=== PATIENT | male | born 1950 | race Caucasian/White ===

== ENCOUNTER → 2020-04-28 10:16 | Outpatient (BNVA) | payer MEDICARE, BC, SELFPAY | PROVIDERS: PCP Internal Medicine; Visit Provider Surgery | DX: K40.90 Unilateral inguinal hernia, without obstruction or gangrene, not specified as recurrent (principal); R10.31 Right lower quadrant pain | CPT/HCPCS: 99202 ==

== ENCOUNTER 2020-05-06 07:57 | Outpatient (REF) | payer MEDICARE, BC, SELFPAY ==
--- NOTE | 2020-05-06 07:59 | CT_ITS ---
EXAMINATION: CT ABDOMEN AND PELVIS WITHOUT CONTRAST CLINICAL INFORMATION: Unilateral inguinal hernia. COMPARISON: None TECHNIQUE: Multidetector volumetric imaging was performed from the superior aspect of the liver through the pubic symphysis. Sagittal and coronal reformatted images were obtained on the technologist's workstation. This CT examination was performed using dose optimization techniques as appropriate, variously including the following: *Automated exposure control *Adjustment of mA and/or kV according to patient size (this includes techniques or standardized protocols for targeted exams where dose is matched to indication/reason for exam; i.e. extremities or head) *Use of iterative reconstruction technique DLP: 360 mGy-cm FINDINGS: LUNG BASES: There is plate-like atelectasis left lung base. LIVER, GALLBLADDER, AND BILIARY TREE: The liver is mildly enlarged, normal shape, and attenuation. No focal hepatic lesion or biliary ductal dilatation is present. The gallbladder is unremarkable with no evidence of radiopaque gallstones, gallbladder wall thickening, or obvious pericholecystic inflammatory changes. PANCREAS: Unremarkable. SPLEEN: Unremarkable. ADRENAL GLANDS: Unremarkable. KIDNEYS AND URETERS: The right kidney is absent. The left kidney is slightly hypertrophied without any radiopaque calculi or hydronephrosis. There is mild perinephric stranding. BLADDER: Unremarkable. GASTROINTESTINAL TRACT: There is scattered stool, diverticuli and gas seen throughout the colon without any significant distention. The small-bowel loops are normal caliber. The appendix is normal. ABDOMINAL WALL: No significant hernia is appreciated. LYMPH NODES: Normal. VASCULAR: Unremarkable. PELVIC VISCERA: There is mild prostate enlargement with scattered central gland calcification. The periprostatic fat planes are preserved. OSSEOUS STRUCTURES: There is moderate right L5-S1 and bilateral L4-L5 facet joint arthropathy and hypertrophy. CT/CT abdomen pelvis wo con IMPRESSION: Scattered colonic diverticulosis without diverticulitis. Mild constipation. [id number] prostate enlargement. The periprostatic fat planes are preserved.
== END 2020-05-06 07:58 | disposition home or self-care (01) ==
LOC: HO.CT 07:57
PROVIDERS: PCP Internal Medicine; Visit Provider Surgery
DX: K40.90 Unilateral inguinal hernia, without obstruction or gangrene, not specified as recurrent (principal)
CPT/HCPCS: 74176

== ENCOUNTER → 2020-05-11 09:21 | Outpatient (BNVA) | payer MEDICARE, BC, SELFPAY | PROVIDERS: PCP Internal Medicine; Visit Provider Surgery | DX: K40.90 Unilateral inguinal hernia, without obstruction or gangrene, not specified as recurrent (principal) | CPT/HCPCS: 99212 ==

== ENCOUNTER 2020-06-07 09:45 | Day surgery (SDC) | payer MEDICARE, BC, SELFPAY ==
[2020-06-01 11:24] VITALS: BMI 23.1
--- NOTE | 2020-06-06 10:30 | HO.ANESPROP2 ---
Documented by User: Maggy Wray 06/06/20 10:31 HPI - Anesthesia Eval Consult details Narrative: 69yo M for Hernia Repair Inguinal with mesh PMFSH Active Problems Active Problems: All Active Problems (Updated 06/01/20 @ 11:23 by Karely Angelo) Inguinal pain (Acute) Trochanteric bursitis (Acute) Abdominal pain (Acute) Left inguinal hernia (Acute) Right groin pain (Acute) BPH (benign prostatic hyperplasia) (Acute) GERD (gastroesophageal reflux disease) (Acute) Asthma (Acute) Hypercholesterolemia (Acute) Anxiety and depression (Acute) Past Medical History Medical History Anxiety and depression Asthma BPH (benign prostatic hyperplasia) Cataracts, bilateral Closed fibular fracture Degenerative disc disease Erectile dysfunction GERD (gastroesophageal reflux disease) Hypercholesterolemia Hyperkalemia Hypertension Kidney congenitally absent, right Left inguinal hernia On beta jose at home Right groin pain Tubular adenoma of colon Family History Family History Father Prostate cancer Mother Stroke Hypertension Brother Myocardial infarction Surgical History Surgical History H/O cataract removal with insertion of prosthetic lens History of arthroscopy of left knee History of bunionectomy History of right inguinal hernia repair History of shoulder surgery History of tonsillectomy Hx of circumcision Hx of colonoscopy Social History Social History Alcohol intake: former Smoking Status: Former smoker Advance Directives: No Advance Directives Information Provided: No Advance Directives on File: No Recently lost weight without trying: No Meds Allergies Allergy/AdvReac Type Severity Reaction Status Date / Time citalopram [Celexa] Allergy Unknown unknown Verified 04/18/20 14:22 finasteride Allergy Muscle Verified 04/27/20 08:28 cramps Home Medications Medication Instructions Recorded Confirmed Type aspirin 81 mg tablet,delayed 81 mg PO DAILY 03/21/20 06/01/20 History release atorvastatin 10 mg tablet 10 mg PO DAILY 03/21/20 06/01/20 History cetirizine 10 mg capsule mg PO DAILY cap 03/21/20 05/11/20 History glucosamine sulfate 500 mg tablet 500 mg PO DAILY 03/21/20 06/01/20 History lisinopril 40 mg tablet 40 mg PO DAILY 03/21/20 06/01/20 History montelukast 10 mg tablet 10 mg PO DAILY 03/21/20 06/01/20 History omeprazole 20 mg capsule,delayed mg PO 03/21/20 05/11/20 History release tamsulosin 0.4 mg capsule 0.4 mg PO DAILY 03/21/20 06/01/20 History vilazodone 40 mg tablet 40 mg PO DAILY 03/21/20 06/01/20 History calcium carbonate 1,000 tab PO 04/28/20 05/11/20 History mg-magnesium hydroxide 200 mg chewable tablet vilazodone 20 mg tablet 20 mg PO DAILY 05/11/20 05/11/20 History Exam Exam Date and Time: June 06, 2020 1030 Height,Weight and Vital Signs: Height 5 ft 10 in Weight 72.972 kg Assessment and Plan Assessment Anesthesia Assessment: Chart Reviewed Documented by User: Candida Horn 06/07/20 10:48 [facility] Past Medical History Medical History Anxiety and depression Asthma BPH (benign prostatic hyperplasia) Cataracts, bilateral Closed fibular fracture Degenerative disc disease Erectile dysfunction GERD (gastroesophageal reflux disease) Hypercholesterolemia Hyperkalemia Hypertension Kidney congenitally absent, right Left inguinal hernia On beta jose at home Right groin pain Tubular adenoma of colon Family History Family History Father Prostate cancer Mother Stroke Hypertension Brother Myocardial infarction Surgical History Surgical History H/O cataract removal with insertion of prosthetic lens History of arthroscopy of left knee History of bunionectomy History of right inguinal hernia repair History of shoulder surgery History of tonsillectomy Hx of circumcision Hx of colonoscopy Social History Social History Alcohol intake: former Smoking Status: Former smoker Advance Directives: No Advance Directives Information Provided: No Advance Directives on File: No Recently lost weight without trying: No Meds Allergies Allergy/AdvReac Type Severity Reaction Status Date / Time citalopram [Celexa] Allergy Unknown unknown Verified 04/18/20 14:22 finasteride Allergy Muscle Verified 04/27/20 08:28 cramps Home Medications Medication Instructions Recorded Confirmed Type aspirin 81 mg tablet,delayed 81 mg PO DAILY 03/21/20 06/01/20 History release atorvastatin 10 mg tablet 10 mg PO DAILY 03/21/20 06/01/20 History cetirizine 10 mg capsule mg PO DAILY cap 03/21/20 05/11/20 History glucosamine sulfate 500 mg tablet 500 mg PO DAILY 03/21/20 06/01/20 History lisinopril 40 mg tablet 40 mg PO DAILY 03/21/20 06/01/20 History montelukast 10 mg tablet 10 mg PO DAILY 03/21/20 06/01/20 History omeprazole 20 mg capsule,delayed mg PO 03/21/20 05/11/20 History release tamsulosin 0.4 mg capsule 0.4 mg PO DAILY 03/21/20 06/01/20 History vilazodone 40 mg tablet 40 mg PO DAILY 03/21/20 06/01/20 History calcium carbonate 1,000 tab PO 04/28/20 05/11/20 History mg-magnesium hydroxide 200 mg chewable tablet vilazodone 20 mg tablet 20 mg PO DAILY 05/11/20 05/11/20 History Exam Airway Mallampati Class: II TM Dist: >3cm Neck ROM: Full Assessment and Plan Assessment Anesthesia Assessment: Anesthesia Plan Discussed and Chart Reviewed Final Anesthetic Review NPO: Yes ASA Class: II Final Preanesthetic Review: No Changes in Pt Med Stat, Meds/Allgs Chart Reviewed, Consent Obtained/Reviewed and Anes Risks/Benef Reviewed Patient Risk: Low Procedure Risk: Low Assessment/Block/Sedation in SS: Assess/Block/Sedation-SS Anesthetic Plan Anesthetic Plan: GA Disposition: Standard PACU
[2020-06-07] VITALS (7 sets, daily range): BP systolic 126–142; BP diastolic 53–72; PULSE 56–65; RESP 12–18; TEMP 36.2–36.8; O2SAT 97–99
[2020-06-07] MEDS: Lactated Ringers 1,000 ML 100 ML IVCONT (10:20)
--- NOTE | 2020-06-07 10:37 | MHC.SHP ---
Pre-Procedural Eval Section B Chief Complaint: Left Inguinal hernia Allergies: Allergies Allergy/AdvReac Type Severity Reaction Status Date / Time citalopram [Celexa] Allergy Unknown unknown Verified 04/18/20 14:22 finasteride Allergy Muscle Verified 04/27/20 08:28 cramps Plan I have reviewed the history and physical and performed a pertinent physical examination on my patient. No changes have occurred unless specified.
--- NOTE | 2020-06-07 11:59 | P.OP_ITS ---
Operative Note Operative Note Date of Service: 06/07/20 Narrative: PREOP DIAGNOSIS: LEFT INGUINAL HERNIA POSTOP DIAGNOSIS: LEFT INGUINAL HERNIA, DIRECT PROCEDURE DONE: REPAIR OF LEFT INGUINAL HERNIA WITH MESH AND PLUG SURGEON: BENITA TIRADO MD [facility] FAMILY MEDICINE PHYSICIAN ASSISTANT: ANDREINA ALLISON The patient is a 69-year-old male with a reducible mass on the left groin consistent with a left inguinal hernia. He wanted to proceed with repair. He understood the technique of repair with mesh. He was aware of the risks, benefits, and alternatives. He was brought to the operating room and placed supine on table under general anesthesia via laryngeal mask airway. The left groin was prepped and draped in the usual sterile fashion. A surgical time-out was done. The patient received cefazolin 2 g IV preoperatively. I infiltrated the planned line of incision using lidocaine 1%. I made a short incision on the skin along an imaginary line from the anterior superior iliac spine to the pubic ramus using a blade 15. This was carried down through the full-thickness of the skin and subcutaneous fat with electrocautery. We then proceeded to define the external oblique aponeurosis. We were able to identify the external ring and bluntly dissected this to carefully define this. I made an incision on the fibers of the aponeurosis using the blade number 15 and extended this inferomedially to connect with the external ring. The inguinal the canal was therefore entered. Hemostats were placed on the edges of the divided external oblique aponeurosis.. I bluntly dissected the plane under the aponeurosis to create a pocket for the mesh. I bluntly dissected the spermatic cord and its contents using an index finger until I was able to pass a Ese drain around this. This De Witt drain was used for retraction. I identified the vas deferens and accompanying vessels. There was note of lipomatous tissue surrounding cord. I examined the cord to identify the hernia sac. The hernia sac was actually on the floor of the canal and this was consistent with a direct hernia. I bluntly dissected the sac until I was able to completely reduce this through the defect. I reinforced this defect using a medium-sized plug. The plug was secured with Prolene 2-0 sutures to the shelving edge of the inguinal ligament laterally, and the internal oblique superiorly as well as medially using the inner leaves of the plug. I reinforced the floor of the canal with a keyhole mesh. The tails of the mesh were passed around the cord at the level of the internal ring and were secured together with Prolene 2 sutures. I secured the mesh with Prolene 2 sutures to the shelving edge of the inguinal canal laterally, and the internal oblique superiorly as well as medially. This was also secured to the pubic ramus in the inferomedial tip. The area was copiously irrigated. Once hemostasis was ensured I proceeded to then close the external oblique aponeurosis running Dexon 2-0 stitch to re- create the external ring. The subcutaneous layer was reapposed with Dexon 3-0 sutures. Skin closure achieved with Dexon 4-0 subcuticular running sutures. Steri-Strips and dressings applied. The incision was infiltrated with Marcaine 0.5% for postop analgesia and the procedure was completed. The patient tolerated the procedure well. There were no complications noted. Initial and final counts of sponges and instruments were correct. Estimated blood loss was 5 cc. The patient was extubated without difficulty and transferred to the recovery room with stable vital signs.
--- NOTE | 2020-06-07 12:05 | PM.OP ---
Brief Operative Note Date of Service: 06/07/20 Pre-op diagnosis: Left inguinal hernia Post-op diagnosis: other (Left inguinal hernia, direct) Procedure: Repair of left inguinal hernia with mesh and plug Implants: Mesh Surgeon: Vineet Grover MD Anesthesia: GLMA Gyroscopic Instrument Tester: Juana Bardales Estimated blood loss (mL): 5 Pathology: none sent Condition: stable Disposition: PACU
== END 2020-06-07 13:25 | disposition home or self-care (01) ==
PROVIDERS: PCP Internal Medicine; Visit Provider Surgery
PROC: (CPT 49505; principal; 2020-06-07 11:50)
DX: K40.90 Unilateral inguinal hernia, without obstruction or gangrene, not specified as recurrent (principal); I10 Essential (primary) hypertension; Z79.899 Other long term (current) drug therapy
CPT/HCPCS: 49505; C1781; J0690; J1100; J2405; J3010

== ENCOUNTER → 2020-06-20 13:08 | Outpatient (BNVA) | payer MEDICARE, BC, SELFPAY | PROVIDERS: PCP Internal Medicine; Visit Provider Surgery | DX: K40.90 Unilateral inguinal hernia, without obstruction or gangrene, not specified as recurrent (principal) | CPT/HCPCS: 99212 ==

== ENCOUNTER → 2020-12-22 09:13 | Outpatient (BNVA) | payer MEDICARE, BC, SELFPAY | PROVIDERS: PCP Internal Medicine; Visit Provider Urology | DX: N41.1 Chronic prostatitis (principal); N40.1 Benign prostatic hyperplasia with lower urinary tract symptoms; N13.8 Other obstructive and reflux uropathy; R35.0 Frequency of micturition; N52.9 Male erectile dysfunction, unspecified; E78.00 Pure hypercholesterolemia, unspecified; I10 Essential (primary) hypertension; Z87.891 Personal history of nicotine dependence; Z88.8 Allergy status to other drugs, medicaments and biological substances | CPT/HCPCS: 99202 ==

== ENCOUNTER 2021-01-27 08:23 | Outpatient (REF) | payer MEDICARE, BC, SELFPAY ==
[2021-01-27 08:41] LABS: MANUAL DIFF FLAG NO
[2021-01-27 09:02] LABS: Basophils Percent Auto 0.2 % (0-2); Eosinophils Absolute Auto 0.1 X10*3/uL (0.0-0.4); Eosinophils Percent Auto 0.8 % (0-4); Hematocrit 45.5 % (42-52); Hemoglobin 16.1 g/dl (14.0-18.0); Imm Gran Abs Auto 0.03 X10*3/uL (0.00-0.03); Imm Gran Pct Auto 0.3 % (0.0-0.4); Lymphocytes Absolute Auto 0.9 X10*3/uL (1.2-4.9); Lymphocytes Percent Auto 9.6 % (20-40); Mean Corpuscular HGB Conc 35.4 g/dl (31.0-36.0); Mean Corpuscular Hemoglobin 31.9 pg (27.0-33.0); Mean Corpuscular Volume 90.3 fL (80-98); Mean Platelet Volume 10.9 fL (9.4-12.4); Monocytes Absolute Auto 0.5 X10*3/uL (0.1-1.2); Monocytes Percent Auto 5.9 % (2-11); Neutrophils Absolute Auto 7.4 X10*3/uL (2.0-8.3); Neutrophils Percent Auto 83.2 % (45-73); Platelet Count 230 X10*3/uL (160-400); Red Blood Count 5.04 X10*6/uL (4.60-5.80); Red Cell Distribution Width 11.5 % (11.0-16.0); White Blood Count 8.9 X10*3/uL (4.8-10.8)
[2021-01-27 09:31] LABS: Alanine Aminotransferase 19 U/L (0-40); Albumin Level 4.3 g/dL (3.5-5.0); Alkaline Phosphatase 102 U/L (39-117); Anion Gap 10 (12-20); Aspartate Amino Transferase 23 U/L (5-37); Bilirubin Total 0.7 mg/dL (0.0-1.0); Blood Urea Nitrogen 20 mg/dL (9-16); Calcium 9.4 mg/dL (8.4-10.2); Carbon Dioxide 28 mmol/L (22-29); Chloride 106 mmol/L (96-108); Cholesterol 174 mg/dL; Estimated Glomerular Filt Rate > 60; Glucose Random 127 mg/dL (60-115); HDL Cholesterol 56 mg/dL; LDL Cholesterol Calculated 105 mg/dl; Potassium 4.3 mmol/L (3.3-5.1); Sodium 140 mmol/L (135-145); Total Protein 6.8 g/dL (6.5-8.0); Triglycerides 69 mg/dL
[2021-01-27 09:53] LABS: Free T4 (Free Thyroxine) 0.96 ng/dL (0.71-1.85); Prostate Specific Antigen Scr 0.89 ng/mL (<0.05-4.0); Thyroid Stimulating Hormone 0.73 uIU/mL (0.32-4.0)
[2021-01-27 09:55] LABS: Folate 17.3 ng/mL (> or = 4.0); Vitamin B12 490 pg/mL (200-900)
== END 2021-01-27 08:24 | disposition home or self-care (01) ==
LOC: HO.LAB 08:23
PROVIDERS: PCP Internal Medicine; Visit Provider Internal Medicine
DX: E78.00 Pure hypercholesterolemia, unspecified (principal); N40.1 Benign prostatic hyperplasia with lower urinary tract symptoms; R35.0 Frequency of micturition; Z12.5 Encounter for screening for malignant neoplasm of prostate
CPT/HCPCS: 36415; 80053; 80061; 82607; 82746; 84153; 84439; 84443; 85025

== ENCOUNTER 2021-12-07 09:43 | Outpatient (REF) | payer MEDICARE, BC, SELFPAY ==
[2021-12-07 09:58] LABS: MANUAL DIFF FLAG NO
[2021-12-07 10:37] LABS: Basophils Absolute Auto 0.1 X10*3/uL (0.0-0.2); Eosinophils Absolute Auto 0.2 X10*3/uL (0.0-0.4); Eosinophils Percent Auto 3.5 % (0-4); Hematocrit 45.3 % (42.0-52.0); Hemoglobin 16.1 g/dl (14.0-18.0); Imm Gran Abs Auto 0.01 X10*3/uL (0.00-0.03); Imm Gran Pct Auto 0.2 % (0.0-0.4); Lymphocytes Absolute Auto 1.4 X10*3/uL (1.2-4.9); Lymphocytes Percent Auto 23.2 % (20-40); Mean Corpuscular HGB Conc 35.5 g/dl (31.0-36.0); Mean Corpuscular Hemoglobin 31.8 pg (27.0-33.0); Mean Corpuscular Volume 89.5 fL (80.0-98.0); Mean Platelet Volume 10.9 fL (9.4-12.4); Monocytes Absolute Auto 0.4 X10*3/uL (0.1-1.2); Monocytes Percent Auto 6.4 % (2-11); Neutrophils Absolute Auto 3.9 x10*3/uL (2.0-8.3); Neutrophils Percent Auto 65.7 % (45-73); Platelet Count 202 X10*3/uL (160-400); Red Blood Count 5.06 X10*6/uL (4.60-5.80); Red Cell Distribution Width 11.9 % (11.0-16.0); White Blood Count 5.9 X10*3/uL (4.8-10.8)
[2021-12-07 11:21] LABS: Alanine Aminotransferase 18 U/L (0-40); Albumin Level 4.2 g/dL (3.5-5.0); Alkaline Phosphatase 97 U/L (39-117); Anion Gap 13 (12-20); Aspartate Amino Transferase 21 U/L (5-37); Bilirubin Total 0.4 mg/dL (0.0-1.0); Blood Urea Nitrogen 16 mg/dL (9-16); Calcium 8.8 mg/dL (8.4-10.2); Carbon Dioxide 28 mmol/L (22-29); Chloride 106 mmol/L (96-108); Cholesterol 174 mg/dL; Estimated Glomerular Filt Rate > 60; Glucose Random 109 mg/dL (60-115); HDL Cholesterol 49 mg/dL; LDL Cholesterol Calculated 111 mg/dl; Potassium 4.9 mmol/L (3.3-5.1); Sodium 142 mmol/L (135-145); Total Protein 6.6 g/dL (6.5-8.0); Triglycerides 74 mg/dL
[2021-12-07 11:43] LABS: Free T4 (Free Thyroxine) 0.96 ng/dL (0.71-1.85); Prostate Specific Antigen Scr 0.47 ng/mL (<0.05-4.0); Thyroid Stimulating Hormone 0.87 uIU/mL (0.32-4.0)
[2021-12-07 13:51] LABS: Folate > 20.0 ng/mL (> or = 4.0); Vitamin B12 478 pg/mL (200-900)
== END 2021-12-07 09:44 | disposition home or self-care (01) ==
LOC: HO.LAB 09:43
PROVIDERS: PCP Internal Medicine; Visit Provider Internal Medicine
DX: Z12.5 Encounter for screening for malignant neoplasm of prostate (principal); N40.1 Benign prostatic hyperplasia with lower urinary tract symptoms; R35.0 Frequency of micturition; E78.00 Pure hypercholesterolemia, unspecified
CPT/HCPCS: 36415; 80053; 80061; 82607; 82746; 84153; 84439; 84443; 85025

== ENCOUNTER 2023-01-02 10:50 | Outpatient (AMB) | payer MEDICARE, BC, SELFPAY ==
[2023-01-02 10:55] VITALS: BP 114/68; PULSE 75; O2SAT 97; BMI 21.9
--- NOTE | 2023-01-02 10:55 | A.OFFPC_ITS ---
Vital Signs 01/02/23 10:55 Height 5 ft 11 in Weight 157 lb BMI 21.9 BP 114/68 Blood Pressure Location Lt brachial Position Sitting Pulse 75 Pulse Source Pulse Oximeter Pulse Oximetry (%) 97 Oxygen Delivery Method Room Air Intake Visit Reasons: 6m F/U HTN , asthma Allergies citalopram [Celexa] Allergy (Unknown, Verified 01/02/23 10:56) Difficulty Breathing finasteride Allergy (Verified 01/02/23 10:56) Muscle cramps fluticasone furoate [From Arnuity Ellipta] Adverse Reaction (Intermediate, Unverified 01/02/23 11:45) hoarsenss Medication List - Last Reconciled 01/02/23 by Kellen Perez MD albuterol sulfate 90 mcg/actuation 2 puffs PO QID PRN alprazolam 0.25 mg PO BID PRN 30 days amlodipine 5 mg PO DAILY aripiprazole 15 mg PO BEDTIME 30 days aspirin 81 mg PO DAILY atorvastatin 10 mg PO DAILY 90 days calcium carbonate-mag hydroxid 1,000-200 mg (Antacid (calcium carb-magnesium hyd)) tabs PO cetirizine (Zyrtec) mg PO DAILY dutasteride (Avodart) 0.5 mg PO DAILY glucosamine sulfate (Glucosamine) 500 mg PO DAILY ipratropium-albuterol 0.5 mg-3 mg(2.5 mg base)/3 mL 3 mL inhalation QID PRN lisinopril 40 mg PO DAILY metoprolol succinate ER 25 mg PO DAILY montelukast 10 mg PO DAILY omeprazole 20 mg PO BID 90 days tamsulosin 0.4 mg PO DAILY trazodone 50 mg PO BEDTIME PRN 30 days vilazodone (Viibryd) 40 mg PO DAILY 90 days Tobacco use date assessed: 06/28/22 Fall risk assessment: No Falls in past year Last assessed Fall Risk: 01/02/23 Dental Screening Dental Screen Date: 01/02/23 Did you have a dental visit in the last 12 months?: Yes Did you have a dental problem in the last 6 months where you did not have access to dental care?: No Was dental information given to patient?: Patient has dentist HPI 6m F/U HTN , asthma HPI Details 72-year-old male with hypertension, hypercholesterolemia, GERD, asthma BPH impaired glucose tolerance and generalized anxiety disorder last seen in August 2022 for an annual well visit. Lab work was requested. As for colonoscopy patient is up-to-date March 2021 and 5 years. Patient has not followed up with the Urology and wants to see a different 1. As for the asthma under control has not been using any inhalers. He does mention that the Incruse causes hoarseness. He does not need any rescue inhaler for now. As for the blood pressure patient brought a list with all blood pressures below 110 systolic blood pressure patient is on 3 blood pressure medication and discussed about taking out 1. As for the blood work reminded patient about the blood work needed. As for the anxiety declined any referral for counseling patient is doing good [facility] Medical History (Updated 09/11/22 @ 17:13 by Kellen Perez MD) Asthma BPH (benign prostatic hyperplasia) Cataracts, bilateral Closed fibular fracture Degenerative disc disease Erectile dysfunction GERD (gastroesophageal reflux disease) Hypercholesterolemia Hyperkalemia Hypertension Kidney congenitally absent, right Left inguinal hernia Tubular adenoma of colon Surgical History H/O cataract removal with insertion of prosthetic lens History of arthroscopy of left knee History of bunionectomy History of left inguinal hernia repair History of right inguinal hernia repair History of shoulder surgery History of tonsillectomy Hx of circumcision Hx of colonoscopy Family History (Updated 06/28/22 @ 14:28 by Parisa Bright CMA) Father Prostate cancer Mother Stroke Hypertension Brother Myocardial infarction Social History Housing: Condominium Alcohol intake: former Patient Tobacco Use Status: Former Tobacco user Tobacco use type: Cigarette Years Smoked: quit smoking 1984 e-Cigarette/Vaping Use: Never Used Second Hand Smoke Exposure: No service: Yes Current occupational status: retired Cognitive needs: No Hearing needs: No Vision needs: Yes Questionnaire PHQ-9 Over the last 2 weeks, how often have you been bothered by any of the following problems? 1. Little interest or pleasure in doing things: several days 2. Feeling down, depressed, or hopeless: several days 3. Trouble falling or staying asleep, or sleeping too much: not at all 4. Feeling tired or having little energy: not at all 5. Poor appetite or overeating: not at all 6. Feeling bad about yourself - or that you are a failure or have let yourself or your family down: several days 7. Trouble concentrating on things, such as reading the newspaper or watching television: not at all 8. Moving or speaking so slowly that other people could have noticed. Or the opposite - being so fidgety or restless that you have been moving around a lot more than usual: not at all 9. Thoughts that you would be better off or of hurting yourself in some way: not at all Total score: 3 Depression Screening Interpretation: Positive Source: Developed by Drs. Ranjith Damian, Lis Du, Benji Blanco and colleagues, with an educational francheska from [employer]. Thrive Questionnaire Date Thrive assessed: 06/28/22 AUDIT C Alcohol Use Questionnaire (AUDIT-C) 1. How often do you have a drink containing alcohol?: Never 2. How many drinks containing alcohol do you have on a typical day when you are drinking?: 1 or 2 3. How often do you have six or more drinks on one occasion?: Never Total Score: 0 NICOLE-7 AMB Questionnaire NICOLE-7 Date NICOLE - 7 assessed: 09/11/22 Source: Developed by Drs. Ranjith Damian, Lis Du, Benji Blanco and colleagues, with an educational francheska from [employer]. Physical exam (Primary Care) Vital Signs: Last Vital Signs Pulse 75 01/02/23 10:55 BP 114/68 01/02/23 10:55 Pulse Ox 97 01/02/23 10:55 Oxygen Delivery Method Room Air 01/02/23 10:55 BMI result Body Mass Index 21.9 Tobacco/Smoking Status: Tobacco use Status Tobacco use date assessed 06/28/22 01/02/23 10:56 Patient Tobacco Use Status Former Tobacco user 01/02/23 10:56 Tobacco use type Cigarette 01/02/23 10:56 e-Cigarette/Vaping Use Never Used 01/02/23 10:56 PHQ-9: PHQ-9 Score PHQ-9: Total score 3 01/02/23 11:13 Depression Screening Interpretation: Positive Thrive Assessment: Date of Thrive Assessment Date Thrive assessed 06/28/22 01/02/23 10:56 Const General: alert; No acute distress Eyes Conjunctivae: conjunctivae normal Resp Auscultation: clear to auscultation bilaterally Cardio Rate: regular rate Rhythm: regular rhythm GI Inspection: Yes normal to inspection Extrem General: Yes normal to inspection and No edema Assessment and Plan Assessment & Plan (1) Hypertension: Code(s): I10 - Essential (primary) hypertension Plan: Continue with blood pressure medication. Decrease salt intake and exercise patient is on amlodipine 5 mg once a day metoprolol 25 mg once a day and lisinopril 40 mg once a day. Patient was advised blood work (2) Hypercholesterolemia: Code(s): E78.00 - Pure hypercholesterolemia, unspecified Plan: Avoid fried foods, chicken skin, eggs, butter margarine, pastries and meat. Be it pork or beef they have a lot of cholesterol LDL goal of less than 130 and triglyceride of less than 150 patient is on atorvastatin 10 mg once a day (3) Asthma: Code(s): J45.909 - Unspecified asthma, uncomplicated Qualifiers: Asthma severity: mild Asthma persistence: intermittent Asthma complication type: uncomplicated Qualified Code(s): J45.20 - Mild intermittent asthma, uncomplicated Plan: Continue with inhalers (4) GERD (gastroesophageal reflux disease): Code(s): K21.9 - Gastro-esophageal reflux disease without esophagitis Plan: Avoid the foods that causes that usually spicy foods, tomato products, juices, coffee, soda and foods that your sensitive to. After eating do not lie down, allow 3-4 hours before in lie down. And keep the head of bed above 30 degrees to avoid the acid from going up. (5) BPH (benign prostatic hyperplasia): Code(s): N40.0 - Benign prostatic hyperplasia without lower urinary tract symptoms Qualifiers: Lower urinary tract symptom presence: symptoms present Lower urinary tract symptom detail: urinary frequency Qualified Code(s): N40.1 - Benign prostatic hyperplasia with lower urinary tract symptoms; R35.0 - Frequency of micturition Plan: Continue with tamsulosin and Avodart (6) Impaired glucose tolerance: Code(s): R73.02 - Impaired glucose tolerance (oral) Plan: Decrease the amount of carbohydrate intake, pasta, bread, rice and potatoes are all sugar and that is aside from all the sweet stuff, remember that fruits are good but they are Sweet also. (7) Generalized anxiety disorder: Comment: decline referral and counselling11/2021 Code(s): F41.1 - Generalized anxiety disorder Plan: Continue with Zack oshea present am trazodone and Viibryd. Blood work has been request Orders: Referrals Urology Referral N40.1 - Benign prostatic hyperplasia with lower urinary tract symptoms, R35.0 - Frequency of micturition Coding Level of Care Code Est Pt Level 4 (62749) Diagnoses Hypertension I10 Hypercholesterolemia E78.00 Asthma J45.20 Asthma severity: mild Asthma persistence: intermittent Asthma complication type: uncomplicated GERD (gastroesophageal reflux disease) K21.9 BPH (benign prostatic hyperplasia) N40.1; R35.0 Lower urinary tract symptom presence: symptoms present Lower urinary tract symptom detail: urinary frequency Impaired glucose tolerance R73.02 Generalized anxiety disorder F41.1
== END 2023-01-02 11:52 | disposition home or self-care (01) ==
PROVIDERS: Visit Provider Internal Medicine
DX: I10 Essential (primary) hypertension (principal); E78.00 Pure hypercholesterolemia, unspecified; J45.20 Mild intermittent asthma, uncomplicated; K21.9 Gastro-esophageal reflux disease without esophagitis; N40.1 Benign prostatic hyperplasia with lower urinary tract symptoms; R35.0 Frequency of micturition; R73.02 Impaired glucose tolerance (oral); F41.1 Generalized anxiety disorder
CPT/HCPCS: 99214

== ENCOUNTER 2023-01-03 12:10 | Outpatient (REF) | payer MEDICARE, BC, SELFPAY ==
[2023-01-03 12:30] LABS: MANUAL DIFF FLAG NO
[2023-01-03 13:53] LABS: Basophils Absolute Auto 0.1 X10*3/uL (0.0-0.2); Basophils Percent Auto 0.6 % (0-2); Eosinophils Absolute Auto 0.1 X10*3/uL (0.0-0.4); Eosinophils Percent Auto 1.3 % (0-4); Hematocrit 44.4 % (42.0-52.0); Hemoglobin 15.9 g/dl (14.0-18.0); Imm Gran Abs Auto 0.04 X10*3/uL (0.00-0.03); Imm Gran Pct Auto 0.5 % (0.0-0.4); Lymphocytes Absolute Auto 1.6 X10*3/uL (1.2-4.9); Lymphocytes Percent Auto 18.9 % (20-40); Mean Corpuscular HGB Conc 35.8 g/dl (31.0-36.0); Mean Corpuscular Hemoglobin 32.7 pg (27.0-33.0); Mean Corpuscular Volume 91.4 fL (80.0-98.0); Mean Platelet Volume 11.5 fL (9.4-12.4); Monocytes Absolute Auto 0.5 X10*3/uL (0.1-1.2); Monocytes Percent Auto 5.5 % (2-11); Neutrophils Absolute Auto 6.1 x10*3/uL (2.0-8.3); Neutrophils Percent Auto 73.2 % (45-73); Platelet Count 191 X10*3/uL (160-400); Red Blood Count 4.86 X10*6/uL (4.60-5.80); Red Cell Distribution Width 11.8 % (11.0-16.0); White Blood Count 8.4 X10*3/uL (4.8-10.8)
[2023-01-03 14:52] LABS: Alanine Aminotransferase 17 U/L (0-40); Albumin Level 4.1 g/dL (3.5-5.0); Alkaline Phosphatase 79 U/L (39-117); Anion Gap 11 (12-20); Aspartate Amino Transferase 18 U/L (5-37); Bilirubin Total 0.8 mg/dL (0.0-1.0); Blood Urea Nitrogen 23 mg/dL (9-16); Calcium 9.5 mg/dL (8.4-10.2); Carbon Dioxide 24 mmol/L (22-29); Chloride 108 mmol/L (96-108); Cholesterol 159 mg/dL (<200); Estimated Glomerular Filt Rate > 60; Glucose Random 97 mg/dL (60-115); HDL Cholesterol 43 mg/dL (>40); LDL Cholesterol Calculated 93 mg/dL (<100); Potassium 4.4 mmol/L (3.3-5.1); Sodium 139 mmol/L (135-145); Total Protein 6.7 g/dL (6.5-8.0); Triglycerides 118 mg/dL (<150)
[2023-01-03 14:58] LABS: Folate 15.7 ng/mL (> or = 4.0); Vitamin B12 796 pg/mL (200-900)
[2023-01-03 15:06] LABS: Free T4 (Free Thyroxine) 0.89 ng/dL (0.71-1.85); Thyroid Stimulating Hormone 0.97 uIU/mL (0.32-4.0)
== END 2023-01-03 12:11 | disposition home or self-care (01) ==
LOC: HO.LAB 12:10
PROVIDERS: PCP Internal Medicine; Visit Provider Internal Medicine
DX: E78.00 Pure hypercholesterolemia, unspecified (principal)
CPT/HCPCS: 36415; 80053; 80061; 82607; 82746; 84439; 84443; 85025

== ENCOUNTER 2023-04-15 09:45 | Outpatient (AMB) | payer MEDICARE, BC, SELFPAY ==
[2023-04-15 09:47] VITALS: BP 134/68; PULSE 50; O2SAT 98; BMI 23.4
--- NOTE | 2023-04-15 09:47 | A.OFFPC_ITS ---
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 Last seen in December 2022 patient is up-to-date with colonoscopy March 2021. Review of the notes follows up with urology January 2023 on Avodart advised time voiding and advised to follow-up in [address] Burk as for the blood work 01/03/2023 no anemia. Electrolytes are normal kidney function is stable sugars normal liver function is normal cholesterol is normal thyroid is normal. Received a letter from the feels that the patient is very depressed patient sleeps 12 hours each night. Patient did try ketamine therapy in MRs in November. still having dysuria. BP at home is good. marijuana gummies taken right now. patient is happy with sleeping a lot and decline counselling and referral [facility] Medical History (Updated 09/11/22 @ 17:13 by Kellen Perez MD) Left inguinal hernia Hyperkalemia Cataracts, bilateral Kidney congenitally absent, right BPH (benign prostatic hyperplasia) GERD (gastroesophageal reflux disease) Degenerative disc disease Erectile dysfunction Hypertension Closed fibular fracture Asthma Hypercholesterolemia Tubular adenoma of colon Surgical History History of left inguinal hernia repair Hx of circumcision Hx of colonoscopy History of right inguinal hernia repair History of shoulder surgery H/O cataract removal with insertion of prosthetic lens History of arthroscopy of left knee History of tonsillectomy History of bunionectomy Family History (Updated 06/28/22 @ 14:28 by Parisa Bright CMA) Father Prostate cancer Mother Stroke Hypertension Brother Myocardial infarction Social History Housing: Condominium Alcohol intake: former Patient Tobacco Use Status: Former Tobacco user Tobacco use type: Cigarette Years Smoked: quit smoking 1985 e-Cigarette/Vaping Use: Never Used Second Hand Smoke Exposure: No service: Yes Current occupational status: retired Cognitive needs: No Hearing needs: No Vision needs: Yes Questionnaire PHQ-9 Over the last 2 weeks, how often have you been bothered by any of the following problems? 1. Little interest or pleasure in doing things: several days 2. Feeling down, depressed, or hopeless: several days 3. Trouble falling or staying asleep, or sleeping too much: not at all 4. Feeling tired or having little energy: not at all 5. Poor appetite or overeating: not at all 6. Feeling bad about yourself - or that you are a failure or have let yourself or your family down: several days 7. Trouble concentrating on things, such as reading the newspaper or watching television: not at all 8. Moving or speaking so slowly that other people could have noticed. Or the opposite - being so fidgety or restless that you have been moving around a lot more than usual: not at all 9. Thoughts that you would be better off or of hurting yourself in some way: not at all Total score: 3 Depression Screening Interpretation: Positive Depression Screening Done: Yes Source: Developed by Drs. Ranjith Damian, Lis Du, Benji Blanco and colleagues, with an educational francheska from [employer]. Thrive Questionnaire Date Thrive assessed: 06/28/22 AUDIT C Alcohol Use Questionnaire (AUDIT-C) 1. How often do you have a drink containing alcohol?: Never 2. How many drinks containing alcohol do you have on a typical day when you are drinking?: 1 or 2 3. How often do you have six or more drinks on one occasion?: Never Total Score: 0 NICOLE-7 AMB Questionnaire NICOLE-7 Date NICOLE - 7 assessed: 09/11/22 Source: Developed by Drs. Ranjith Damian, Lis Du, Benji Blanco and colleagues, with an educational francheska from [employer]. Physical exam (Primary Care) Vital Signs: Last Vital Signs Pulse 50 04/15/23 09:47 BP 134/68 04/15/23 09:47 Pulse Ox 98 04/15/23 09:47 Oxygen Delivery Method Room Air 04/15/23 09:47 BMI result Body Mass Index 23.4 Tobacco/Smoking Status: Tobacco use Status Tobacco use date assessed 04/15/23 04/15/23 09:58 Patient Tobacco Use Status Former Tobacco user 04/15/23 09:47 Tobacco use type Cigarette 04/15/23 09:47 e-Cigarette/Vaping Use Never Used 04/15/23 09:47 PHQ-9: PHQ-9 Score PHQ-9: Total score 3 04/15/23 09:58 Depression Screening Interpretation: Positive Thrive Assessment: Date of Thrive Assessment Date Thrive assessed 06/28/22 04/15/23 09:47 Const General: alert; No acute distress Eyes Conjunctivae: conjunctivae normal Resp Auscultation: clear to auscultation bilaterally Cardio Rate: regular rate Rhythm: regular rhythm GI Inspection: Yes normal to inspection Extrem General: Yes normal to inspection and No edema Assessment and Plan Assessment & Plan (1) Hypertension: Code(s): I10 - Essential (primary) hypertension Plan: Continue with blood pressure medication. Decrease salt intake and exercise patient takes lisinopril 40 mg once a day metoprolol 25 mg once a day (2) Hypercholesterolemia: Code(s): E78.00 - Pure hypercholesterolemia, unspecified Plan: Avoid fried foods, chicken skin, eggs, butter margarine, pastries and meat. Be it pork or beef they have a lot of cholesterol LDL goal of less than 130 and triglyceride of less than 150 patient has atorvastatin 10 mg once a day (3) Asthma: Code(s): J45.909 - Unspecified asthma, uncomplicated Qualifiers: Asthma severity: mild Asthma persistence: intermittent Asthma complication type: uncomplicated Qualified Code(s): J45.20 - Mild intermittent asthma, uncomplicated Plan: Continue with the albuterol inhaler as needed montelukast (4) GERD (gastroesophageal reflux disease): Code(s): K21.9 - Gastro-esophageal reflux disease without esophagitis Plan: Avoid the foods that causes that usually spicy foods, tomato products, juices, coffee, soda and foods that your sensitive to. After eating do not lie down, allow 3-4 hours before in lie down. And keep the head of bed above 30 degrees to avoid the acid from going up. (5) BPH (benign prostatic hyperplasia): Code(s): N40.0 - Benign prostatic hyperplasia without lower urinary tract symptoms Qualifiers: Lower urinary tract symptom presence: symptoms present Lower urinary tract symptom detail: urinary frequency Qualified Code(s): N40.1 - Benign prostatic hyperplasia with lower urinary tract symptoms; R35.0 - Frequency of micturition Plan: Patient follows up with urology and continuing with Avodart. (6) Impaired glucose tolerance: Code(s): R73.02 - Impaired glucose tolerance (oral) Plan: Decrease the amount of carbohydrate intake, pasta, bread, rice and potatoes are all sugar and that is aside from all the sweet stuff, remember that fruits are good but they are Sweet also. (7) Generalized anxiety disorder: Comment: decline referral and counselling11/2021 Code(s): F41.1 - Generalized anxiety disorder Plan: Discussion with patient regarding anxiety and depression patient about this and what we can offer as far as counseling and psychiatry referral but patient declined. Coding Level of Care Code Est Pt Level 4 (55462) Diagnoses Hypertension I10 Hypercholesterolemia E78.00 Mild intermittent asthma without complication J45.20 Asthma severity: mild Asthma persistence: intermittent Asthma complication type: uncomplicated GERD (gastroesophageal reflux disease) K21.9 Benign prostatic hyperplasia with urinary frequency N40.1; R35.0 Lower urinary tract symptom presence: symptoms present Lower urinary tract symptom detail: urinary frequency Impaired glucose tolerance R73.02 Generalized anxiety disorder F41.1
== END 2023-04-15 10:38 | disposition home or self-care (01) ==
PROVIDERS: PCP Internal Medicine; Visit Provider Internal Medicine
DX: I10 Essential (primary) hypertension (principal); E78.00 Pure hypercholesterolemia, unspecified; J45.20 Mild intermittent asthma, uncomplicated; K21.9 Gastro-esophageal reflux disease without esophagitis; N40.1 Benign prostatic hyperplasia with lower urinary tract symptoms; R35.0 Frequency of micturition; R73.02 Impaired glucose tolerance (oral); F41.1 Generalized anxiety disorder
CPT/HCPCS: 99214

== ENCOUNTER 2023-04-30 09:45 | Outpatient (REF) | payer MEDICARE, BC, SELFPAY ==
[2023-04-30 11:35] LABS: Prostate Specific Antigen 0.44 ng/mL (<0.05-4.0)
== END 2023-04-30 09:46 | disposition home or self-care (01) ==
LOC: HO.LAB 09:45
PROVIDERS: PCP Internal Medicine; Visit Provider Urology
DX: N40.1 Benign prostatic hyperplasia with lower urinary tract symptoms (principal); Z12.5 Encounter for screening for malignant neoplasm of prostate
CPT/HCPCS: 36415; 84153

== ENCOUNTER 2023-08-15 12:52 | Outpatient (AMB) | payer MEDICARE, BC, SELFPAY ==
--- NOTE | 2023-08-15 12:54 | A.OFFPC_ITS ---
Vital Signs 08/15/23 12:55 Height 5 ft 11 in Weight 74.389 kg BMI 22.9 BP 132/68 Blood Pressure Location Lt brachial Position Sitting Pulse 52 Pulse Source Pulse Oximeter Pulse Oximetry (%) 98 Oxygen Delivery Method Room Air Intake Visit Reasons: Hypertension Allergies citalopram [Celexa] Allergy (Unknown, Verified 08/15/23 12:56) Difficulty Breathing finasteride Allergy (Verified 08/15/23 12:56) Muscle cramps fluticasone furoate [From Arnuity Ellipta] Adverse Reaction (Intermediate, Verified 08/15/23 12:56) hoarsenss Medication List - Last Reconciled 08/15/23 by Kellen Perez MD albuterol sulfate 90 mcg/actuation 2 puffs PO QID PRN alprazolam 0.25 mg PO BID PRN 30 days aripiprazole 15 mg PO BEDTIME 30 days aspirin 81 mg PO DAILY atorvastatin 10 mg PO DAILY 90 days calcium carbonate-mag hydroxid 1,000-200 mg (Antacid (calcium carb-magnesium hyd)) tabs PO cetirizine (Zyrtec) mg PO DAILY dutasteride (Avodart) 0.5 mg PO DAILY glucosamine sulfate (Glucosamine) 500 mg PO DAILY ipratropium-albuterol 0.5 mg-3 mg(2.5 mg base)/3 mL 3 mL inhalation QID PRN lisinopril 40 mg PO DAILY metoprolol succinate ER 25 mg PO DAILY montelukast 10 mg PO DAILY omeprazole 20 mg PO BID 90 days sildenafil 100 mg PO DAILY PRN tamsulosin 0.4 mg PO DAILY trazodone 50 mg PO BEDTIME PRN 30 days vilazodone (Viibryd) 40 mg PO DAILY 90 days Tobacco use date assessed: 08/15/23 Fall risk assessment: No Falls in past year Last assessed Fall Risk: 08/15/23 Dental Screening Dental Screen Date: 08/15/23 Did you have a dental visit in the last 12 months?: Yes Did you have a dental problem in the last 6 months where you did not have access to dental care?: No Was dental information given to patient?: Patient has dentist HPI Hypertension HPI Details 73-year-old male with hypertension hyper cholesterolemia asthma GERD BPH impaired glucose tolerance and generalized anxiety disorder last seen in March 2023. Patient is here for follow-up. Patient's colonoscopy last done in March 2021 5 years. Review of the notes patient follows up with urology for BPH on Avodart [facility] Medical History (Updated 08/15/23 @ 13:33 by Kellen Perez MD) Colon cancer screening Left inguinal hernia Hyperkalemia Cataracts, bilateral Kidney congenitally absent, right BPH (benign prostatic hyperplasia) GERD (gastroesophageal reflux disease) Degenerative disc disease Erectile dysfunction Hypertension Closed fibular fracture Asthma Hypercholesterolemia Tubular adenoma of colon Surgical History History of left inguinal hernia repair Hx of circumcision Hx of colonoscopy History of right inguinal hernia repair History of shoulder surgery H/O cataract removal with insertion of prosthetic lens History of arthroscopy of left knee History of tonsillectomy History of bunionectomy Family History (Updated 06/28/22 @ 14:28 by Parisa Bright CMA) Father Prostate cancer Mother Stroke Hypertension Brother Myocardial infarction Social History Housing: Condominium Alcohol intake: former Patient Tobacco Use Status: Former Tobacco user Tobacco use type: Cigarette Years Smoked: quit smoking 1984 e-Cigarette/Vaping Use: Never Used Second Hand Smoke Exposure: No service: Yes Current occupational status: retired Cognitive needs: No Hearing needs: No Vision needs: Yes Questionnaire PHQ-9 Over the last 2 weeks, how often have you been bothered by any of the following problems? 1. Little interest or pleasure in doing things: several days 2. Feeling down, depressed, or hopeless: several days 3. Trouble falling or staying asleep, or sleeping too much: not at all 4. Feeling tired or having little energy: not at all 5. Poor appetite or overeating: not at all 6. Feeling bad about yourself - or that you are a failure or have let yourself or your family down: several days 7. Trouble concentrating on things, such as reading the newspaper or watching television: not at all 8. Moving or speaking so slowly that other people could have noticed. Or the opposite - being so fidgety or restless that you have been moving around a lot more than usual: not at all 9. Thoughts that you would be better off or of hurting yourself in some way: not at all Total score: 3 Depression Screening Interpretation: Positive Depression Screening Done: Yes Source: Developed by Drs. Ranjith Damian, Lis Du, Benji Blanco and colleagues, with an educational francheska from [employer]. Thrive Questionnaire Date Thrive assessed: 08/15/23 I am a: Patient What is your living situation today?: I have a steady place to live Within the past 12 months, did the food you bought not last and you didn't have the money to get more?: Never true Within the past 12 months, did you worry whether your food would run out before you got money to buy more?: Never true Do you have trouble paying for medicines?: No Do you have trouble getting transportation to medical appointments?: No Do you have trouble paying your heating and electricity bill?: No Do you have trouble taking care of your child, family member or friend?: No Do you have trouble with day-to-day activities such as bathing, preparing meals, shopping, managing finances, etc.?: No Are you currently unemployed and looking for a job?: No Are you interested in more education?: No Currently or been in a relationship where the following occur: no concerns reported THRIVE Score: 0 AUDIT C Alcohol Use Questionnaire (AUDIT-C) 1. How often do you have a drink containing alcohol?: Never 2. How many drinks containing alcohol do you have on a typical day when you are drinking?: 1 or 2 3. How often do you have six or more drinks on one occasion?: Never Total Score: 0 NICOLE-7 AMB Questionnaire NICOLE-7 Date NICOLE - 7 assessed: 08/15/23 Feeling nervous, anxious, or on edge: 0 = Not at all Not being able to stop or control worryin = Not at all Worrying too much about different things: 0 = Not at all Trouble relaxin = Not at all Being so restless that it is hard to sit still: 0 = Not at all Becoming easily annoyed or irritable: 0 = Not at all Feeling afraid as if something awful might happen: 0 = Not at all Total NICOLE-7 score (0-4 normal; 5-9 mild; 10-14 moderate; 15-21 severe): 0 Source: Developed by Drs. Ranjith Damian, Lis Du, Benji Blanco and colleagues, with an educational francheska from [employer]. Physical exam (Primary Care) Vital Signs: Last Vital Signs Pulse 52 08/15/23 12:55 BP 132/68 08/15/23 12:55 Pulse Ox 98 08/15/23 12:55 Oxygen Delivery Method Room Air 08/15/23 12:55 BMI result Body Mass Index 22.9 Tobacco/Smoking Status: Tobacco use Status Tobacco use date assessed 08/15/23 08/15/23 13:04 Patient Tobacco Use Status Former Tobacco user 08/15/23 13:04 Tobacco use type Cigarette 08/15/23 13:04 e-Cigarette/Vaping Use Never Used 08/15/23 13:04 PHQ-9: PHQ-9 Score PHQ-9: Total score 3 08/15/23 13:27 Depression Screening Interpretation: Positive Thrive Assessment: Date of Thrive Assessment Date Thrive assessed 08/15/23 08/15/23 13:04 Currently or been in a relationship where the following occur: no concerns reported Const General: alert; No acute distress Eyes Conjunctivae: conjunctivae normal Resp Auscultation: clear to auscultation bilaterally Cardio Rate: regular rate Rhythm: regular rhythm GI Inspection: Yes normal to inspection Extrem General: Yes normal to inspection and No edema Immunizations tetanus-diphtheria toxoids-Td 2 Lf unit-2 Lf unit/0.5 mL IM suspension Performing Provider: Kellen Perez MD Performing Location: [facility] Administered by: Parisa Bright CMA on 08/15/23 13:42 Dose Route Admin Location Dispensed Lot Number Expiration Date MAC Ad Operations Coordinator 0.5 mL IM Left Deltoid 0.5 mL [id number] 06/08/24 [address]-2 [employer] VIS Given Date VIS Provided VIS Publication Date 08/15/23 Single Vaccine 20 Eligibility Eligibility Date Funding Source Not [facility] Eligible 08/15/23 State funds Assessment and Plan Assessment & Plan (1) Hypertension: Code(s): I10 - Essential (primary) hypertension Plan: Continue with blood pressure medication. Decrease salt intake and exercise patient is on lisinopril 40 mg once a day metoprolol 25 mg once a day (2) Hypercholesterolemia: Code(s): E78.00 - Pure hypercholesterolemia, unspecified Plan: Avoid fried foods, chicken skin, eggs, butter margarine, pastries and meat. Be it pork or beef they have a lot of cholesterol LDL goal of less than 130 and triglyceride of less than 150 takes atorvastatin 10 mg once a day December was the last blood work (3) Asthma: Code(s): J45.909 - Unspecified asthma, uncomplicated Qualifiers: Asthma complication type: uncomplicated Asthma persistence: intermittent Asthma severity: mild Qualified Code(s): J45.20 - Mild intermittent asthma, uncomplicated Plan: On albuterol and to take/use as needed (4) GERD (gastroesophageal reflux disease): Code(s): K21.9 - Gastro-esophageal reflux disease without esophagitis Plan: Avoid the foods that causes that usually spicy foods, tomato products, juices, coffee, soda and foods that your sensitive to. After eating do not lie down, allow 3-4 hours before in lie down. And keep the head of bed above 30 degrees to avoid the acid from going up. On omeprazole (5) BPH (benign prostatic hyperplasia): Code(s): N40.0 - Benign prostatic hyperplasia without lower urinary tract symptoms Qualifiers: Lower urinary tract symptom detail: urinary frequency Lower urinary tract symptom presence: symptoms present Qualified Code(s): N40.1 - Benign prostatic hyperplasia with lower urinary tract symptoms; R35.0 - Frequency of micturition Plan: Patient follows up with urology placed on tamsulosin and Avodart (6) Impaired glucose tolerance: Code(s): R73.02 - Impaired glucose tolerance (oral) Plan: Decrease the amount of carbohydrate intake, pasta, bread, rice and potatoes are all sugar and that is aside from all the sweet stuff, remember that fruits are good but they are Sweet also. (7) Generalized anxiety disorder: Comment: decline referral and counselling11/2021 Code(s): F41.1 - Generalized anxiety disorder Plan: Continue with present medication of Abilify alprazolam as needed trazodone and Viibryd. (8) Erectile dysfunction: Code(s): N52.9 - Male erectile dysfunction, unspecified Orders: Orders Free T4 (Free Thyroxine) 6 Months E78.00 - Pure hypercholesterolemia, unspecified Comprehensive Met. Panel 6 Months E78.00 - Pure hypercholesterolemia, unspecified Thyroid Stimulating Hormone 6 Months E78.00 - Pure hypercholesterolemia, unspecified Td State Immunization Today Z23 - Encounter for immunization Lipid Panel 6 Months E78.00 - Pure hypercholesterolemia, unspecified Complete Blood Count Auto Diff 6 Months E78.00 - Pure hypercholesterolemia, unspecified Hemoglobin A1c 6 Months E78.00 - Pure hypercholesterolemia, unspecified Vitamin B12 and Folate 6 Months E78.00 - Pure hypercholesterolemia, unspecified Medications: New sildenafil administer 30 minutes to 4 hours before activity 100 mg PO DAILY PRN 10 tabs 9RF sexual activity N52.9 - Male erectile dysfunction, unspecified tetanus-diphtheria toxoids-Td 0.5 mL IM ONCE 0.5 mL 0RF Z23 - Encounter for immunization Coding Level of Care Code Est Pt Level 4 (51907) Diagnoses Hypertension I10 Hypercholesterolemia E78.00 Mild intermittent asthma without complication J45.20 Asthma complication type: uncomplicated Asthma persistence: intermittent Asthma severity: mild GERD (gastroesophageal reflux disease) K21.9 Benign prostatic hyperplasia with urinary frequency N40.1; R35.0 Lower urinary tract symptom detail: urinary frequency Lower urinary tract symptom presence: symptoms present Impaired glucose tolerance R73.02 Generalized anxiety disorder F41.1 Erectile dysfunction N52.9
[2023-08-15 12:55] VITALS: BP 132/68; PULSE 52; O2SAT 98; BMI 22.9
== END 2023-08-15 13:51 | disposition home or self-care (01) ==
PROVIDERS: PCP Internal Medicine; Visit Provider Internal Medicine
DX: I10 Essential (primary) hypertension (principal); E78.00 Pure hypercholesterolemia, unspecified; J45.20 Mild intermittent asthma, uncomplicated; K21.9 Gastro-esophageal reflux disease without esophagitis; N40.1 Benign prostatic hyperplasia with lower urinary tract symptoms; R35.0 Frequency of micturition; R73.02 Impaired glucose tolerance (oral); F41.1 Generalized anxiety disorder; N52.9 Male erectile dysfunction, unspecified; Z23 Encounter for immunization
CPT/HCPCS: 90471; 90714; 99214

== ENCOUNTER 2024-02-14 09:42 | Outpatient (REF) | payer MEDICARE, BC, SELFPAY ==
[2024-02-14 10:10] LABS: MANUAL DIFF FLAG NO
[2024-02-14 10:52] LABS: Basophils Absolute Auto 0.1 X10*3/uL (0.0-0.2); Basophils Percent Auto 0.6 % (0-2); Eosinophils Absolute Auto 0.2 X10*3/uL (0.0-0.4); Eosinophils Percent Auto 1.8 % (0-4); Hematocrit 45.1 % (42.0-52.0); Hemoglobin 15.5 g/dl (14.0-18.0); Imm Gran Abs Auto 0.04 X10*3/uL (0.00-0.03); Imm Gran Pct Auto 0.4 % (0.0-0.4); Lymphocytes Absolute Auto 1.2 X10*3/uL (1.2-4.9); Lymphocytes Percent Auto 12.8 % (20-40); Mean Corpuscular HGB Conc 34.4 g/dl (31.0-36.0); Mean Corpuscular Hemoglobin 32.1 pg (27.0-33.0); Mean Corpuscular Volume 93.4 fL (80.0-98.0); Monocytes Absolute Auto 0.5 X10*3/uL (0.1-1.2); Monocytes Percent Auto 5.3 % (2-11); Neutrophils Absolute Auto 7.1 x10*3/uL (2.0-8.3); Neutrophils Percent Auto 79.1 % (45-73); Platelet Count 206 X10*3/uL (160-400); Red Blood Count 4.83 X10*6/uL (4.60-5.80); Red Cell Distribution Width 12.1 % (11.0-16.0)
[2024-02-14 11:29] LABS: Alanine Aminotransferase 20 U/L (0-40); Albumin Level 4.2 g/dL (3.5-5.0); Alkaline Phosphatase 96 U/L (39-117); Anion Gap 14 (12-20); Aspartate Amino Transferase 22 U/L (5-37); Bilirubin Total 0.6 mg/dL (0.0-1.0); Blood Urea Nitrogen 37 mg/dL (9-16); Carbon Dioxide 27 mmol/L (22-29); Chloride 106 mmol/L (96-108); Cholesterol 163 mg/dL (<200); Estimated Glomerular Filt Rate 52; Glucose Random 104 mg/dL (60-115); HDL Cholesterol 40 mg/dL (>40); LDL Cholesterol Calculated 103 mg/dL (<100); Potassium 4.8 mmol/L (3.3-5.1); Sodium 142 mmol/L (135-145); Total Protein 6.8 g/dL (6.5-8.0); Triglycerides 101 mg/dL (<150)
[2024-02-14 11:36] LABS: Free T4 (Free Thyroxine) 1.08 ng/dL (0.71-1.85); Thyroid Stimulating Hormone 1.58 uIU/mL (0.32-4.0)
[2024-02-14 12:01] LABS: Folate 13.6 ng/mL (> or = 4.0); Vitamin B12 542 pg/mL (200-900)
[2024-02-14 12:33] LABS: Estimated Average Glucose 88 mg/dL; Hemoglobin A1C 129.1144 umol/L; Hemoglobin A1c % 4.7 % (<6.0); Total Hemoglobin (HGBA1C) 4679.1728 umol/L
== END 2024-02-14 09:43 | disposition home or self-care (01) ==
LOC: HO.LAB 09:42
PROVIDERS: PCP Internal Medicine; Visit Provider Internal Medicine
DX: E78.00 Pure hypercholesterolemia, unspecified (principal); Z13.1 Encounter for screening for diabetes mellitus
CPT/HCPCS: 36415; 80053; 80061; 82607; 82746; 83036; 84439; 84443; 85025

== ENCOUNTER 2024-02-20 11:14 | Outpatient (AMB) | payer MEDICARE, BC, SELFPAY ==
[2024-02-20 11:16] VITALS: BP 108/64; PULSE 72; O2SAT 98; BMI 21.8
--- NOTE | 2024-02-20 11:16 | A.OFFVIS_ITS ---
Intake Vital Signs 02/20/24 11:16 Height 5 ft 11 in Weight 156 lb BMI 21.8 BP 108/64 Blood Pressure Location Lt brachial Position Sitting Pulse 72 Pulse Source Pulse Oximeter Pulse Oximetry (%) 98 Oxygen Delivery Method Room Air Intake Visit Reasons: [id number] Allergies citalopram [Celexa] Allergy (Unknown, Verified 02/20/24 11:16) Difficulty Breathing finasteride Allergy (Verified 02/20/24 11:16) Muscle cramps fluticasone furoate [From Arnuity Ellipta] Adverse Reaction (Intermediate, Verified 02/20/24 11:16) hoarsenss Medication List - Last Reconciled 02/20/24 by Kellen Perez MD albuterol sulfate 90 mcg/actuation 2 puffs PO QID PRN alprazolam 0.25 mg PO BID PRN 30 days aripiprazole 20 mg PO BEDTIME PRN atorvastatin 10 mg PO DAILY 90 days bupropion HCl XL 300 mg PO DAILY bupropion HCl XL 150 mg PO DAILY calcium carbonate-mag hydroxid 1,000-200 mg (Antacid (calcium carb-magnesium hyd)) tabs PO cetirizine (Zyrtec) mg PO DAILY dutasteride (Avodart) 0.5 mg PO DAILY glucosamine sulfate (Glucosamine) 500 mg PO DAILY ipratropium-albuterol 0.5 mg-3 mg(2.5 mg base)/3 mL 3 mL inhalation QID PRN lisinopril 40 mg PO DAILY metoprolol succinate ER 25 mg PO DAILY montelukast 10 mg PO DAILY omeprazole 20 mg PO BID 90 days tamsulosin 0.4 mg PO DAILY vilazodone (Viibryd) 40 mg PO DAILY 90 days HPI [id number] HPI Details 73-year-old male with hypertension hyper cholesterolemia asthma GERD BPH impaired glucose tolerance and generalized anxiety disorder last seen in July 2023. Patient's last colonoscopy was in 2020 5 years. Review of the notes was in the ER recently for head trauma patient had a CT scan of the head with no intracranial abnormality no maxillofacial fracture no traumatic malalignment involving the cervical spine. Patient was walking on a curve and missed a step. No loss of consciousness. Patient also has seen Urology 11/26/2023 for BPH on Avodart and Flomax noted 8 lb weight loss. has been dizzy has apeetitte Patient follows up with urology-[facility] dermatology: [facility], pulmonary Dr. Nuzhat Beckham, ENT Dr. Balbir MIRANDA Medical History (Updated 02/20/24 @ 17:43 by Kellen Perez MD) Colon cancer screening Left inguinal hernia Hyperkalemia Cataracts, bilateral Kidney congenitally absent, right BPH (benign prostatic hyperplasia) GERD (gastroesophageal reflux disease) Degenerative disc disease Erectile dysfunction Hypertension Closed fibular fracture Asthma Hypercholesterolemia Tubular adenoma of colon Surgical History History of left inguinal hernia repair Hx of circumcision Hx of colonoscopy History of right inguinal hernia repair History of shoulder surgery H/O cataract removal with insertion of prosthetic lens History of arthroscopy of left knee History of tonsillectomy History of bunionectomy Family History (Updated 06/28/22 @ 14:28 by Parisa Brihgt [facility]) Father Prostate cancer Mother Stroke Hypertension Brother Myocardial infarction Social History Housing: Condominium Alcohol intake: former Patient Tobacco Use Status: Former Tobacco user Tobacco use type: Cigarette Years Smoked: quit smoking 1984 e-Cigarette/Vaping Use: Never Used Second Hand Smoke Exposure: No service: Yes Current occupational status: retired Cognitive needs: No Hearing needs: No Vision needs: Yes Questionnaire Medicare Wellness Checkup [age] What gender do you identify with?: male During the past 4 weeks, how much have you been bothered by emotional problems such as feeling anxious, depressed, irritable, sad or downhearted, and blue?: quite a bit During the past 4 weeks, has your physical & emotional health limited your social activities with family, friends, neighbors, or groups?: quite a bit During the past 4 weeks, how much bodily pain have you generally had?: very mild pain During the past 4 weeks, was someone available to help you if you needed & wanted help?: yes, as much as I wanted During the past 4 weeks, what was the hardest physical activity you could do for at least 2 minutes?: moderate Can you get to places out of walking distance without help? (For eg., can you travel alone on buses, taxis or drive your car?): Yes Can you go shopping for groceries or clothes without someone's help?: Yes Can you prepare your own meals?: Yes Can you do your housework without help?: Yes Because of any health problems, do you need the help of another person with your personal care needs such as eating, bathing, dressing or getting around the house?: No Can you handle your own money without help?: Yes During the past 4 weeks, how would you rate your health in general?: good During the past 4 weeks how have things been going for you?: good & bad parts about equal Are you having difficulties driving your car?: no Do you always fasten your seat belt when you are in a car?: yes, usually During past 4 weeks, have you been bothered by the following: never: Trouble eating well?, Teeth or denture problems? and Problems using the telephone?, seldom: Falling or dizzy when standing up, sometimes: Tiredness or fatigue? and always: Sexual problems? Have you fallen 2 or more times in the past year?: No Are you afraid of falling?: Yes Are you a smoker?: no During the past 4 weeks, how many drinks of wine, beer, or other alcoholic beverages did you have?: no alcohol at all Do you exercise for about 20 minutes 3 or more times a week?: yes, most of the time Have you been given information to help with the following?: no: Hazards in your house that might hurt you? and no: Keeping track of your medications? How often do you have trouble taking medicines the way you have been told to take them?: I always take medicine as prescribed How confident are you that you can control & manage most of your health problems?: very confident What is your race?: White PHQ-9 Over the last 2 weeks, how often have you been bothered by any of the following problems? 1. Little interest or pleasure in doing things: nearly every day 2. Feeling down, depressed, or hopeless: nearly every day 3. Trouble falling or staying asleep, or sleeping too much: nearly every day 4. Feeling tired or having little energy: nearly every day 5. Poor appetite or overeating: not at all 6. Feeling bad about yourself - or that you are a failure or have let yourself or your family down: nearly every day 7. Trouble concentrating on things, such as reading the newspaper or watching television: not at all 8. Moving or speaking so slowly that other people could have noticed. Or the opposite - being so fidgety or restless that you have been moving around a lot more than usual: several days 9. Thoughts that you would be better off or of hurting yourself in some way: not at all Total score: 16 Depression Screening Interpretation: Positive Depression Screening Done: Yes [id number] - PHQ-9 Billing: Yes Source: Developed by Drs. Ranjith Damian, Lis Du, Benji Blanco and colleagues, with an educational francheska from [employer]. Review of Systems Const Denies poor appetite and Denies weakness Eyes Denies no additional complaints ENT Reports Normal hearing present, Denies dizziness, Denies nasal congestion, Denies tinnitus and Denies sore throat Card Denies chest pain, Denies syncope, Denies rapid heart rate and Denies dyspnea Resp Denies cough and Denies dyspnea GI Denies change in stool character, Reports constipation, Denies diarrhea, Denies nausea and Denies vomiting Denies dysuria and Denies urinary frequency Neuro Reports Normal hearing present, Denies confusion, Denies dizziness, Denies syncope and Denies weakness Psych Denies confusion Physical Exam Vital Signs: Last Vital Signs Pulse 72 02/20/24 11:16 BP 108/64 02/20/24 11:16 Pulse Ox 98 02/20/24 11:16 Oxygen Delivery Method Room Air 02/20/24 11:16 BMI result Body Mass Index 21.8 Const General: alert; No acute distress or confusion Orientation/consciousness: No confusion HEENT Head: Yes normocephalic Ears: external ears normal and TM's normal bilaterally Face and sinus: Yes normal facial exam Mouth: moist mucous membranes Throat: Yes tonsils normal Eyes Conjunctivae: conjunctivae normal Pupils: Equal, round and reactive pupils present and Pupil accommodation reflex normal Direct Ophthalmoscopy: normal light reflex Neck Neck: No lymphadenopathy Thyroid: Thyroid normal Chest Chest palpation & inspection: normal inspection of the chest Resp Effort & Inspection: normal respiratory effort and no audible wheezes Auscultation: clear to auscultation bilaterally Cardio Rate: regular rate Rhythm: regular rhythm Peripheral pulses: radial pulses present and dorsalis pedis present GI Other: guaiac negative mild prostates enlargement Inspection: Yes normal to inspection Palpation (GI): no masses Auscultation: normal bowel sounds and normoactive bowel sounds Other: R bulge > than the left but patient state L pops out Skin General skin exam: no rashes or lesions noted Rashes: no rashes Neuro General: No confusion Cranial nerves: Yes Equal, round and reactive pupils present and Yes Normal hearing present Cognition (Neuro): normal cognition Gait exam (Neuro): Normal gait present Motor exam (neuro): 5/5 motor strength present throughout Deep tendon reflexes (DTR's): Right brachioradialis reflex intensity grade: 2+, Left brachioradialis reflex intensity grade: 2+, Right patellar reflex intensity grade: 2+ and Left patellar reflex intensity grade: 2+ Extrem General: Yes normal to inspection and No edema Assessment & Plan Assessment & Plan (1) Hypercholesterolemia: Code(s): E78.00 - Pure hypercholesterolemia, unspecified Plan: Avoid fried foods, chicken skin, eggs, butter margarine, pastries and meat. Be it pork or beef they have a lot of cholesterol LDL goal of less than 130 and tr iglyceride of less than 150. On atorvastatin 10 mg once a day (2) Asthma: Code(s): J45.909 - Unspecified asthma, uncomplicated Qualifiers: Asthma complication type: uncomplicated Asthma persistence: intermittent Asthma severity: mild Qualified Code(s): J45.20 - Mild intermittent asthma, uncomplicated Plan: Continue with albuterol inhaler as needed and montelukast (3) GERD (gastroesophageal reflux disease): Code(s): K21.9 - Gastro-esophageal reflux disease without esophagitis Qualifiers: Esophagitis presence: without esophagitis Qualified Code(s): K21.9 - Gastro-esophageal reflux disease without esophagitis Plan: Avoid the foods that causes that usually spicy foods, tomato products, juices, coffee, soda and foods that your sensitive to. After eating do not lie down, allow 3-4 hours before in lie down. And keep the head of bed above 30 degrees to avoid the acid from going up. (4) BPH (benign prostatic hyperplasia): Code(s): N40.0 - Benign prostatic hyperplasia without lower urinary tract symptoms Qualifiers: Lower urinary tract symptom detail: urinary frequency Lower urinary tract symptom presence: symptoms present Qualified Code(s): N40.1 - Benign prostatic hyperplasia with lower urinary tract symptoms; R35.0 - Frequency of micturition Plan: Patient follows up with urology on tamsulosin and Avodart (5) Impaired glucose tolerance: Code(s): R73.02 - Impaired glucose tolerance (oral) Plan: Decrease the amount of carbohydrate intake, pasta, bread, rice and potatoes are all sugar and that is aside from all the sweet stuff, remember that fruits are good but they are Sweet also. (6) Generalized anxiety disorder: Comment: decline referral and counselling11/2021 Code(s): F41.1 - Generalized anxiety disorder Plan: Continue with therapy (7) Hypertension: Code(s): I10 - Essential (primary) hypertension Qualifiers: Hypertension type: primary hypertension Qualified Code(s): I10 - Essential (primary) hypertension Plan: Patient is on lisinopril 40 mg once a day metoprolol 25 mg once a day. DUE to hypotension , will discontinue lisinoprill (8) Encounter for subsequent annual wellness visit (AWV) in Medicare patient: Code(s): Z00.00 - Encounter for general adult medical examination without abnormal findings Plan: Patient is advised to eat healthy, keep well hydrated, keep active and have adequate sleep. (9) Hearing deficit: Code(s): H91.90 - Unspecified hearing loss, unspecified ear Qualifiers: Hearing loss type: unspecified Laterality: bilateral Qualified Code(s): H91.93 - Unspecified hearing loss, bilateral Plan: Referral for hearing test (10) Bilateral inguinal hernia: Code(s): K40.20 - Bilateral inguinal hernia, without obstruction or gangrene, not specified as recurrent Qualifiers: Obstruction and gangrene presence: without obstruction or gangrene Recurrence: non-recurrent Qualified Code(s): K40.20 - Bilateral inguinal hernia, without obstruction or gangrene, not specified as recurrent Plan: Referral to the surgeon for evaluation and management Orders: Orders Comprehensive Met. Panel Today I10 - Essential (primary) hypertension Hemoglobin A1c Today I10 - Essential (primary) hypertension Referrals Psychiatry Outpatient Consultation Service F41.1 - Generalized anxiety disorder Speech and Hearing Referral H91.90 - Unspecified hearing loss, unspecified ear General Surgery Referral K40.20 - Bilateral inguinal hernia, without obstruction or gangrene, not specified as recurrent Medications: Discontinued lisinopril Discontinued Reason: Doctor's Order 40 mg PO DAILY 90 tabs 2RF Quality Reporting (2019) Depression/Bipolar (159/160/161/177) PHQ-9: Total score: 16 Coding Level of Care Code Medicare Subsequent (G0439) Diagnoses Hypercholesterolemia E78.00 Mild intermittent asthma without complication J45.20 Asthma complication type: uncomplicated Asthma persistence: intermittent Asthma severity: mild Gastroesophageal reflux disease without esophagitis K21.9 Esophagitis presence: without esophagitis Benign prostatic hyperplasia with urinary frequency N40.1; R35.0 Lower urinary tract symptom detail: urinary frequency Lower urinary tract symptom presence: symptoms present Impaired glucose tolerance R73.02 Generalized anxiety disorder F41.1 Primary hypertension I10 Hypertension type: primary hypertension Encounter for subsequent annual wellness visit (AWV) in Medicare patient Z00.00 Bilateral hearing loss, unspecified hearing loss type H91.93 Hearing loss type: unspecified Laterality: bilateral Non-recurrent bilateral inguinal hernia without obstruction or gangrene K40.20 Obstruction and gangrene presence: without obstruction or gangrene Recurrence: non-recurrent
== END 2024-02-20 12:07 | disposition home or self-care (01) ==
PROVIDERS: PCP Internal Medicine; Visit Provider Internal Medicine
DX: Z00.00 Encounter for general adult medical examination without abnormal findings (principal); E78.00 Pure hypercholesterolemia, unspecified; J45.20 Mild intermittent asthma, uncomplicated; K21.9 Gastro-esophageal reflux disease without esophagitis; N40.1 Benign prostatic hyperplasia with lower urinary tract symptoms; R35.0 Frequency of micturition; R73.02 Impaired glucose tolerance (oral); F41.1 Generalized anxiety disorder; I10 Essential (primary) hypertension; H91.93 Unspecified hearing loss, bilateral; K40.20 Bilateral inguinal hernia, without obstruction or gangrene, not specified as recurrent

== ENCOUNTER → 2024-02-20 11:14 | Outpatient (BNVA) | payer MEDICARE, BC, SELFPAY | PROVIDERS: PCP Internal Medicine; Visit Provider Internal Medicine ==

== ENCOUNTER 2024-03-03 10:00 | Outpatient (REF) | payer MEDICARE, BC, SELFPAY ==
[2024-03-03 11:10] LABS: Estimated Average Glucose 85 mg/dL; Hemoglobin A1C 105.7687 umol/L; Hemoglobin A1c % 4.6 % (<6.0); Total Hemoglobin (HGBA1C) 3937.7062 umol/L
[2024-03-03 11:34] LABS: Blood Urea Nitrogen 23 mg/dL (9-16)
[2024-03-03 11:35] LABS: Alanine Aminotransferase 27 U/L (0-40); Albumin Level 4.1 g/dL (3.5-5.0); Alkaline Phosphatase 100 U/L (39-117); Anion Gap 13 (12-20); Aspartate Amino Transferase 26 U/L (5-37); Bilirubin Total 0.6 mg/dL (0.0-1.0); Blood Urea Nitrogen 23 mg/dL (9-16); Calcium 9.5 mg/dL (8.4-10.2); Carbon Dioxide 26 mmol/L (22-29); Chloride 107 mmol/L (96-108); Estimated Glomerular Filt Rate 58; Glucose Random 100 mg/dL (60-115); Potassium 5.1 mmol/L (3.3-5.1); Sodium 141 mmol/L (135-145); Total Protein 6.8 g/dL (6.5-8.0)
== END 2024-03-03 10:01 | disposition home or self-care (01) ==
LOC: HO.LAB 10:00
PROVIDERS: PCP Internal Medicine; Referring Provider Internal Medicine; Visit Provider Surgery
DX: I10 Essential (primary) hypertension (principal); K40.20 Bilateral inguinal hernia, without obstruction or gangrene, not specified as recurrent; Z13.1 Encounter for screening for diabetes mellitus; R10.31 Right lower quadrant pain; R10.32 Left lower quadrant pain
CPT/HCPCS: 36415; 80053; 83036; 84520; 99202

== ENCOUNTER 2024-03-03 10:00 | Outpatient (AMB) | payer MEDICARE, BC, SELFPAY ==
--- NOTE | 2024-03-03 10:09 | A.OFFVIS_ITS ---
Vital Signs 03/03/24 10:17 Height 5 ft 10 in Weight 160 lb BMI 23.0 BP 130/80 Blood Pressure Location Lt brachial Position Sitting Intake Visit Reasons: Bilateral inguinal hernia Intake Note: Patient is seen in office for evaluation of bilateral inguinal hernias. 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: No Accompanied by: Self / Same As Patient Allergies citalopram [Celexa] Allergy (Unknown, Verified 03/03/24 10:17) Difficulty Breathing finasteride Allergy (Verified 03/03/24 10:17) Muscle cramps fluticasone furoate [From Arnuity Ellipta] Adverse Reaction (Intermediate, Verified 03/03/24 10:17) hoarsenss Medication List - Last Reconciled 03/03/24 by Grant Gudino MD albuterol sulfate 90 mcg/actuation 2 puffs PO QID PRN alprazolam 0.25 mg PO BID PRN 30 days amlodipine 10 mg PO DAILY aripiprazole 20 mg PO BEDTIME PRN aspirin 81 mg PO DAILY atorvastatin 10 mg PO DAILY 90 days bupropion HCl XL 300 mg PO DAILY bupropion HCl XL 150 mg PO DAILY calcium carbonate-mag hydroxid 1,000-200 mg (Antacid (calcium carb-magnesium hyd)) tabs PO cetirizine (Zyrtec) mg PO DAILY cetirizine (Zyrtec) 10 mg PO DAILY PRN dutasteride (Avodart) 0.5 mg PO DAILY glucosamine sulfate (Glucosamine) 500 mg PO DAILY ipratropium-albuterol 0.5 mg-3 mg(2.5 mg base)/3 mL 3 mL inhalation QID PRN lisinopril 40 mg PO DAILY metoprolol succinate ER 25 mg PO DAILY montelukast 10 mg PO DAILY omeprazole 20 mg PO BID 90 days tamsulosin 0.4 mg PO DAILY trazodone 50 mg PO DAILY vilazodone (Viibryd) 40 mg PO DAILY 90 days HPI Comments Details: Patient was status post bilateral inguinal hernia repair in the past (2016 and 2020). He now presents because of bilateral groin pain and bulge/swelling in each groin. This has been going on and off for the last 1 or 2 years time. Patient otherwise tolerating a diet, he has regular bowel habits. His activity levels are moderately active. He states and particularly the left side that and on 2 occasions has had bulging which he manually reduced. COUNTS INCLUDE 234 BEDS AT THE [facility] Medical History Colon cancer screening Left inguinal hernia Hyperkalemia Cataracts, bilateral Kidney congenitally absent, right BPH (benign prostatic hyperplasia) GERD (gastroesophageal reflux disease) Degenerative disc disease Erectile dysfunction Hypertension Closed fibular fracture Asthma Hypercholesterolemia Tubular adenoma of colon Surgical History History of left inguinal hernia repair Hx of circumcision Hx of colonoscopy History of right inguinal hernia repair History of shoulder surgery H/O cataract removal with insertion of prosthetic lens History of arthroscopy of left knee History of tonsillectomy History of bunionectomy Family History Father Prostate cancer Mother Stroke Hypertension Brother Myocardial infarction Social History Housing: Condominium Alcohol intake: former Patient Tobacco Use Status: Former Tobacco user Tobacco use type: Cigarette Years Smoked: quit smoking 1985 e-Cigarette/Vaping Use: Never Used Second Hand Smoke Exposure: No service: Yes Current occupational status: retired Cognitive needs: No Hearing needs: No Vision needs: Yes Physical Exam Vital Signs: Last Vital Signs BP 130/80 03/03/24 10:17 BMI result Body Mass Index 23.0 GI Other: Patient was examined both supine and standing with Valsalva. Abdomen is soft, benign. Bilateral inguinal hernia scars well healed. No obvious hernias demonstrated with Valsalva. Genitalia within normal limits. Assessment & Plan Assessment & Plan (1) Bilateral groin pain: Code(s): R10.31 - Right lower quadrant pain; R10.32 - Left lower quadrant pain Category: Surgical Plan Because of the unclear nature of the patient's symptoms, somewhat limited exam, current plan is to arrange for a CT scan of the abdomen and pelvis indirect further interventions studies based on these results. Patient understands and agrees. Arrangements made for this. He will see me after the studies. Orders: Orders CT abdomen pelvis wo/w IV con Today K40.20 - Bilateral inguinal hernia, without obstruction or gangrene, not specified as recurrent Coding Level of Care Code New Pt Level 4 (94940) Diagnoses Bilateral groin pain R10.31; R10.32
[2024-03-03 10:17] VITALS: BP 130/80; BMI 23.0
== END 2024-03-03 10:34 | disposition home or self-care (01) ==
LOC: HO.HGS 10:00
PROVIDERS: PCP Internal Medicine; Referring Provider Internal Medicine; Visit Provider Surgery
DX: R10.31 Right lower quadrant pain (principal); R10.32 Left lower quadrant pain
CPT/HCPCS: 99204

== ENCOUNTER 2024-03-16 10:24 | Outpatient (REF) | payer MEDICARE, BC, SELFPAY | END 2024-03-16 10:25 | disposition home or self-care (01) | LOC: HO.SH 10:24 | PROVIDERS: Visit Provider Internal Medicine | DX: Z01.118 Encounter for examination of ears and hearing with other abnormal findings (principal); H90.3 Sensorineural hearing loss, bilateral | CPT/HCPCS: 92557 ==

== ENCOUNTER 2024-04-14 10:14 | Outpatient (REF) | payer MEDICARE, BC, SELFPAY ==
[2024-04-14 11:28] LABS: Blood Urea Nitrogen 16 mg/dL (9-16); Estimated Glomerular Filt Rate > 60
== END 2024-04-14 10:15 | disposition home or self-care (01) ==
LOC: HO.LAB 10:14
PROVIDERS: PCP Internal Medicine; Visit Provider Surgery
DX: K40.20 Bilateral inguinal hernia, without obstruction or gangrene, not specified as recurrent (principal)
CPT/HCPCS: 36415; 82565; 84520

== ENCOUNTER 2024-04-28 07:55 | Outpatient (REF) | payer MEDICARE, BC, SELFPAY ==
--- NOTE | ~2024-04-28 | CT_ITS ---
CLINICAL HISTORY: K40.20 - Bilateral inguinal hernia, without obstruction or gangrene, not... CT abdomen and pelvis with contrast Comparison: CT/REG - CT ABDOMEN PELVIS WO CON - 05/06/20 08:13 EST Findings: No consolidation or effusion. The liver again demonstrates a small cyst or hemangioma within the periphery of the inferior right lobe on axial 26. The gallbladder, spleen, adrenal glands and pancreas are unremarkable. The right kidney is absent. The left kidney is within normal limits. The bladder is partially distended. Moderate fecal retention. No small bowel obstruction or free air. Diverticulosis noted. No evidence of diverticulitis. Rounded somewhat hazy low-density soft tissue masses within the mesentery, likely reflecting enlarged lymph nodes, new from prior, for example axial 42 measuring up to 17 mm No current inguinal hernia identified. No suspicious bone lesion. Impression: New somewhat hazy low-density probable lymph nodes within the mesentery, mildly enlarged and nonspecific. Close interval follow-up and/or clinical correlation recommended. No current inguinal hernia. This document has been electronically signed by: Esvin Denson MD on 04/29/2024 10:06:35
[2024-04-28] MEDS: iohexoL 350 MG/ML 100 ML INFUS..BTL IV (10:53)
[2024-04-28] MEDS: Barium Sulfate Oral (Berry) 450 ML ORAL.SUSP PO ×2 (10:53→10:54)
== END 2024-04-28 07:56 | disposition home or self-care (01) ==
LOC: HO.CT 07:55
PROVIDERS: PCP Internal Medicine; Visit Provider Surgery
DX: K40.20 Bilateral inguinal hernia, without obstruction or gangrene, not specified as recurrent (principal)
CPT/HCPCS: 74177; Q9967

== ENCOUNTER → 2024-04-28 07:55 | Outpatient (BNV) | payer MEDICARE, BC, SELFPAY | PROVIDERS: PCP Internal Medicine; Visit Provider Radiology Vascular & Interventional Radiology | DX: K57.30 Diverticulosis of large intestine without perforation or abscess without bleeding (principal) | CPT/HCPCS: 74177 ==

== ENCOUNTER 2024-05-08 16:18 | Outpatient (AMB) | payer MEDICARE, BC, SELFPAY ==
--- NOTE | 2024-05-08 16:19 | A.OFFPC_ITS ---
Intake Visit Reasons: COVID Pos. Cad Application Support Specialist Required: No Accompanied by: Self / Same As Patient Allergies citalopram [Celexa] Allergy (Unknown, Verified 05/08/24 16:21) Difficulty Breathing finasteride Allergy (Verified 05/08/24 16:21) Muscle cramps fluticasone furoate [From Arnuity Ellipta] Adverse Reaction (Intermediate, Verified 05/08/24 16:21) hoarsenss Tobacco use date assessed: 05/08/24 Fall risk assessment: No Falls in past year Last assessed Fall Risk: 05/08/24 Dental Screening Dental Screen Date: 05/08/24 Did you have a dental visit in the last 12 months?: Yes Did you have a dental problem in the last 6 months where you did not have access to dental care?: No HPI COVID Pos. HPI Details sore throat, fever, cough, no sob. The patient is a 73-year-old male presenting with COVID-19 infection. The patient tested positive for COVID-19 yesterday. His had previously been diagnosed with COVID-19, which prompted him to test himself. The patient reports a sore throat and a fever, which reached 100.7?F. He also reports a cough but denies bringing up sputum. There is no reported shortness of breath. The patient's history includes essential hypertension, hypercholesterolemia, asthma, gastroesophageal reflux disease, and benign prostatic hyperplasia, all of which are managed with medications. The patient is considering antiviral therapy for the COVID-19 infection. - Respiratory: Reports cough; Denies fernando rtness of breath - General: Reports fever - Throat: Reports sore throat [facility] Medical History Colon cancer screening Left inguinal hernia Hyperkalemia Cataracts, bilateral Kidney congenitally absent, right BPH (benign prostatic hyperplasia) GERD (gastroesophageal reflux disease) Degenerative disc disease Erectile dysfunction Hypertension Closed fibular fracture Asthma Hypercholesterolemia Tubular adenoma of colon Surgical History History of left inguinal hernia repair Hx of circumcision Hx of colonoscopy History of right inguinal hernia repair History of shoulder surgery H/O cataract removal with insertion of prosthetic lens History of arthroscopy of left knee History of tonsillectomy History of bunionectomy Family History Father Prostate cancer Mother Stroke Hypertension Brother Myocardial infarction Social History Housing: Condominium Alcohol intake: former Patient Tobacco Use Status: Former Tobacco user Tobacco use type: Cigarette Years Smoked: quit smoking 1985 e-Cigarette/Vaping Use: Never Used Second Hand Smoke Exposure: No service: Yes Current occupational status: retired Cognitive needs: No Hearing needs: No Vision needs: Yes Questionnaire PHQ-9 Over the last 2 weeks, how often have you been bothered by any of the following problems? 1. Little interest or pleasure in doing things: nearly every day 2. Feeling down, depressed, or hopeless: nearly every day 3. Trouble falling or staying asleep, or sleeping too much: nearly every day 4. Feeling tired or having little energy: nearly every day 5. Poor appetite or overeating: not at all 6. Feeling bad about yourself - or that you are a failure or have let yourself or your family down: nearly every day 7. Trouble concentrating on things, such as reading the newspaper or watching television: not at all 8. Moving or speaking so slowly that other people could have noticed. Or the opposite - being so fidgety or restless that you have been moving around a lot more than usual: several days 9. Thoughts that you would be better off or of hurting yourself in some way: not at all Total score: 16 Depression Screening Interpretation: Positive Depression Screening Done: Yes 35662 - PHQ-9 Billing: Yes Source: Developed by Drs. Ranjith Damian, Lis Du, Benji Blanco and colleagues, with an educational francheska from [employer]. Thrive Questionnaire Date Thrive assessed: 05/08/24 I am a: Patient What is your living situation today?: I have a steady place to live Within the past 12 months, did the food you bought not last and you didn't have the money to get more?: Never true Within the past 12 months, did you worry whether your food would run out before you got money to buy more?: Never true Do you have trouble paying for medicines?: No Do you have trouble getting transportation to medical appointments?: No Do you have trouble paying your heating and electricity bill?: No Do you have trouble taking care of your child, family member or friend?: No Do you have trouble with day-to-day activities such as bathing, preparing meals, shopping, managing finances, etc.?: No Are you currently unemployed and looking for a job?: No Are you interested in more education?: No Please select the resources that you would like help with: None Currently or been in a relationship where the following occur: No concerns reported THRIVE Score: 0 AUDIT C Alcohol Use Questionnaire (AUDIT-C) 1. How often do you have a drink containing alcohol?: Never 2. How many drinks containing alcohol do you have on a typical day when you are drinking?: 1 or 2 3. How often do you have six or more drinks on one occasion?: Never Total Score: 0 NICOLE-7 AMB Questionnaire NICOLE-7 Date NICOLE - 7 assessed: 05/08/24 Feeling nervous, anxious, or on edge: 0 = Not at all Not being able to stop or control worryin = Not at all Worrying too much about different things: 0 = Not at all Trouble relaxin = Not at all Being so restless that it is hard to sit still: 0 = Not at all Becoming easily annoyed or irritable: 0 = Not at all Feeling afraid as if something awful might happen: 0 = Not at all Total NICOLE-7 score (0-4 normal; 5-9 mild; 10-14 moderate; 15-21 severe): 0 Source: Developed by Drs. Ranjith Damian, Lis Du, Benji Blanco and colleagues, with an educational francheska from [employer]. Physical exam (Primary Care) Tobacco/Smoking Status: Tobacco use Status Tobacco use date assessed 05/08/24 05/08/24 16:22 Patient Tobacco Use Status Former Tobacco user 05/08/24 16:22 Tobacco use type Cigarette 05/08/24 16:22 e-Cigarette/Vaping Use Never Used 05/08/24 16:22 PHQ-9: PHQ-9 Score PHQ-9: Total score 16 05/08/24 16:22 Depression Screening Interpretation: Positive Thrive Assessment: Date of Thrive Assessment Date Thrive assessed 05/08/24 05/08/24 16:22 Currently or been in a relationship where the following occur: No concerns reported Telehealth Telehealth Telehealth Platform: Telephone (android ) Location of provider rendering services: practice address Location of patient: address on file Patient Identification confirmed using: Name, : Yes Telehealth method: voice only (android) Patient verbally consented to treatment: Yes Patient verbally consented to billing insurance company: Yes Patient informed of any privacy concerns related to visit: Yes Minutes spent on Phone/Video with Pt.: 15 Coding Level of Care Code Tele Est Pt Level 3 (84092) Diagnoses COVID-19 virus infection U07.1 Additional Codes PHQ-9 - 71781 - PHQ-9 Billing: Yes ([id number]) Assessment & Plan Assessment & Plan (1) COVID-19 virus infection: Comment: 05/07/2024 Code(s): U07.1 - COVID-19 Category: Medical Plan: increase oral fluids , delsym for cough , call for any other problem Plan - Prescribe antiviral therapy for COVID-19 infection. - Review current medications for potential interactions with the antiviral medication. The patient agreed to pause certain medications during the antiviral course. - Advise maintaining hydration during the illness. - [id number] remedies for symptomatic relief of sore throat were suggested. During the telehealth visit, we discussed the recent COVID-19 diagnosis and evaluated the need for antiviral treatment. I reviewed the patient's current medications and identified the necessity to pause some treatments to avoid interactions with the antiviral. The antiviral is prescribed for a duration of five days. We discussed the importance of hydration and potential [id number] options for relieving sore throat symptoms. The patient was informed about common side effects of the antiviral and consented to the treatment plan. The patient also agreed to monitor symptoms and would contact me if there are any concerns. For the sore throat can take Cepacol lozenges, discussed about Delsym to help with dry cough so she can rest and advised to increase oral fluids. Patient also can take Tylenol for chills and fever. Medications: New nirmatrelvir-ritonavir 300 mg (150 mg x 2)-100 mg (Paxlovid) take TWO 150 mg tablets of nirmatrelvir with ONE 100 mg tablet of ritonavir twice daily for 5 days PO 30 ea 0RF U07.1 - COVID-19
== END 2024-05-08 17:53 | disposition home or self-care (01) ==
LOC: HO.HMCH 16:18
PROVIDERS: PCP Internal Medicine; Visit Provider Internal Medicine
DX: U07.1 COVID-19 (principal)

== ENCOUNTER → 2024-05-08 16:18 | Outpatient (BNVA) | payer MEDICARE, BC, SELFPAY | PROVIDERS: PCP Internal Medicine; Visit Provider Internal Medicine | DX: U07.1 COVID-19 (principal) | CPT/HCPCS: 96127 ==

== ENCOUNTER 2024-06-08 11:15 | Outpatient (AMB) | payer MEDICARE, BC, SELFPAY ==
--- NOTE | 2024-06-08 11:22 | MHC.OFFVIS ---
Vital Signs 06/08/24 11:26 Height 5 ft 10 in Weight 160 lb BMI 23.0 BP 128/70 Blood Pressure Location Lt brachial Position Sitting Pulse 72 Intake Visit Reasons: Ct-Scan follow-up Intake Note: Patient here to discuss Abdomen CT done on 04-28-2024 results. Reports Covid 19 infection in April. Feeling much better after completing Paxlovid X5d txt. 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 His symptoms are improved. CT scan demonstrates no evidence of any recurrent hernia. [facility] Medical History Colon cancer screening Left inguinal hernia Hyperkalemia Cataracts, bilateral Kidney congenitally absent, right BPH (benign prostatic hyperplasia) GERD (gastroesophageal reflux disease) Degenerative disc disease Erectile dysfunction Hypertension Closed fibular fracture Asthma Hypercholesterolemia Tubular adenoma of colon Surgical History History of left inguinal hernia repair Hx of circumcision Hx of colonoscopy History of right inguinal hernia repair History of shoulder surgery H/O cataract removal with insertion of prosthetic lens History of arthroscopy of left knee History of tonsillectomy History of bunionectomy Family History Father Prostate cancer Mother Stroke Hypertension Brother Myocardial infarction Social History Housing: Condominium Alcohol intake: former Patient Tobacco Use Status: Former Tobacco user Tobacco use type: Cigarette Years Smoked: quit smoking 1984 e-Cigarette/Vaping Use: Never Used Second Hand Smoke Exposure: No service: Yes Current occupational status: retired Cognitive needs: No Hearing needs: No Vision needs: Yes Physical Exam Vital Signs: Last Vital Signs Pulse 72 06/08/24 11:26 BP 128/70 06/08/24 11:26 BMI result Body Mass Index 23.0 GI Other: Abdomen is soft, benign. Patient examined both supine and standing with Valsalva. Bilateral groin exam demonstrates no evidence of recurrence of hernias. Genitalia within normal limits. Assessment & Plan Assessment & Plan (1) Inguinodynia, bilateral: Code(s): R10.31 - Right lower quadrant pain; R10.32 - Left lower quadrant pain Category: Surgical Plan Patient was reassured. No evidence of any recurrent hernia. He will otherwise follow-up p.r.n.. All questions answered. Coding Level of Care Code Est Pt Level 4 (57189) Diagnoses Inguinodynia, bilateral R10.31; R10.32
[2024-06-08 11:26] VITALS: BP 128/70; PULSE 72; BMI 23.0
== END 2024-06-08 11:29 | disposition home or self-care (01) ==
PROVIDERS: PCP Internal Medicine; Visit Provider Surgery
DX: R10.31 Right lower quadrant pain (principal); R10.32 Left lower quadrant pain
CPT/HCPCS: 99214

== ENCOUNTER → 2024-06-08 11:15 | Outpatient (BNVA) | payer MEDICARE, BC, SELFPAY | PROVIDERS: PCP Internal Medicine; Visit Provider Surgery | DX: R10.31 Right lower quadrant pain (principal); R10.32 Left lower quadrant pain | CPT/HCPCS: 99212 ==

== ENCOUNTER 2024-06-09 12:16 | Outpatient (AMB) | payer MEDICARE, BC, SELFPAY ==
[2024-06-09 12:20] VITALS: BP 136/78; PULSE 64; O2SAT 97; BMI 23.4
--- NOTE | 2024-06-09 12:20 | MHC.PC.OV ---
Vital Signs 06/09/24 12:20 Height 5 ft 10 in Weight 163 lb BMI 23.4 BP 136/78 Blood Pressure Location Lt brachial Position Sitting Pulse 64 Pulse Source Pulse Oximeter Pulse Oximetry (%) 97 Oxygen Delivery Method Room Air Intake Visit Reasons: HTN, dehydration Allergies citalopram [Celexa] Allergy (Unknown, Verified 06/09/24 12:20) Difficulty Breathing finasteride Allergy (Verified 06/09/24 12:20) Muscle cramps fluticasone furoate [From Arnuity Ellipta] Adverse Reaction (Intermediate, Verified 06/09/24 12:20) hoarsenss Tobacco use date assessed: 05/08/24 Fall risk assessment: No Falls in past year Last assessed Fall Risk: 06/09/24 Dental Screening Dental Screen Date: 05/08/24 HPI HTN, dehydration HPI Details The patient is a 73-year-old male presenting with a need for follow-up on multiple chronic conditions including asthma, hypercholesterolemia, GERD, BPH, impaired glucose tolerance, generalized anxiety disorder, and essential hypertension. He was last seen via telehealth on May 08, during a COVID-19 infection. His most recent colonoscopy was conducted in 2020. On June 08, he was assessed by a surgeon post-CT scan which revealed bilateral inguinal hernia; however, no evidence of a current inguinal hernia was observed during the recent evaluation. The CT scan from April 28 noted new, mildly enlarged, somewhat hazy low-density mesenteric lymph nodes, for which close interval follow-up was recommended. The patient's last complete blood count and cholesterol test, conducted in January 2024, demonstrated normal results, with an LDL of 103. His renal function and blood glucose levels remain stable, and electrolytes are within normal limits. Current medications include amlodipine, lisinopril, metoprolol, albuterol inhaler, montelukast, and atorvastatin. The goal for LDL is less than 130, and triglycerides less than 150. The patient continues with current therapy for reflux control. [facility] Medical History Colon cancer screening Left inguinal hernia Hyperkalemia Cataracts, bilateral Kidney congenitally absent, right BPH (benign prostatic hyperplasia) GERD (gastroesophageal reflux disease) Degenerative disc disease Erectile dysfunction Hypertension Closed fibular fracture Asthma Hypercholesterolemia Tubular adenoma of colon Surgical History History of left inguinal hernia repair Hx of circumcision Hx of colonoscopy History of right inguinal hernia repair History of shoulder surgery H/O cataract removal with insertion of prosthetic lens History of arthroscopy of left knee History of tonsillectomy History of bunionectomy Family History Father Prostate cancer Mother Stroke Hypertension Brother Myocardial infarction [facility] Alcohol intake: former Patient Tobacco Use Status: Former Tobacco user Tobacco use type: Cigarette Years Smoked: quit smoking 1985 e-Cigarette/Vaping Use: Never Used Second Hand Smoke Exposure: No service: Yes Current occupational status: retired Cognitive needs: No Hearing needs: No Vision needs: Yes Questionnaire PHQ-9 Over the last 2 weeks, how often have you been bothered by any of the following problems? 1. Little interest or pleasure in doing things: nearly every day 2. Feeling down, depressed, or hopeless: nearly every day 3. Trouble falling or staying asleep, or sleeping too much: nearly every day 4. Feeling tired or having little energy: nearly every day 5. Poor appetite or overeating: not at all 6. Feeling bad about yourself - or that you are a failure or have let yourself or your family down: nearly every day 7. Trouble concentrating on things, such as reading the newspaper or watching television: not at all 8. Moving or speaking so slowly that other people could have noticed. Or the opposite - being so fidgety or restless that you have been moving around a lot more than usual: several days 9. Thoughts that you would be better off or of hurting yourself in some way: not at all Total score: 16 Depression Screening Interpretation: Positive Depression Screening Done: Yes 34421 - PHQ-9 Billing: Yes Source: Developed by Drs. Ranjith Damian, Lis Du, Benji Blanco and colleagues, with an educational francheska from [employer] (acquired by [employer] in 2014). Thrive Questionnaire Date Thrive assessed: 05/08/24 AUDIT C Alcohol Use Questionnaire (AUDIT-C) 1. How often do you have a drink containing alcohol?: Never 2. How many drinks containing alcohol do you have on a typical day when you are drinking?: 1 or 2 3. How often do you have six or more drinks on one occasion?: Never Total Score: 0 NICOLE-7 AMB Questionnaire NICOLE-7 Date NICOLE - 7 assessed: 05/08/24 Source: Developed by Drs. Ranjith Damian, Lis Du, Benji Blanco and colleagues, with an educational francheska from [employer] (acquired by [employer] in 2014). Physical exam (Primary Care) Vital Signs: Last Vital Signs Pulse 64 06/09/24 12:20 BP 136/78 06/09/24 12:20 Pulse Ox 97 06/09/24 12:20 Oxygen Delivery Method Room Air 06/09/24 12:20 BMI result Body Mass Index 23.4 Tobacco/Smoking Status: Tobacco use Status Tobacco use date assessed 05/08/24 06/09/24 12:25 Patient Tobacco Use Status Former Tobacco user 06/09/24 12:25 Tobacco use type Cigarette 06/09/24 12:25 e-Cigarette/Vaping Use Never Used 06/09/24 12:25 PHQ-9: PHQ-9 Score PHQ-9: Total score 16 06/09/24 12:25 Depression Screening Interpretation: Positive Thrive Assessment: Date of Thrive Assessment Date Thrive assessed 05/08/24 06/09/24 12:25 Const General: alert; No acute distress Eyes Conjunctivae: conjunctivae normal Resp Auscultation: clear to auscultation bilaterally Cardio Rate: regular rate Rhythm: regular rhythm GI Inspection: Yes normal to inspection Extrem General: Yes normal to inspection and No edema Coding Level of Care Code Est Pt Level 4 (84173) Complex EM visit Add On G2211 Diagnoses Primary hypertension I10 Hypertension type: primary hypertension Mild intermittent asthma without complication J45.20 Asthma severity: mild Asthma persistence: intermittent Asthma complication type: uncomplicated Hypercholesterolemia E78.00 Gastroesophageal reflux disease without esophagitis K21.9 Esophagitis presence: without esophagitis Generalized anxiety disorder F41.1 Additional Codes PHQ-9 - 89472 - PHQ-9 Billing: Yes ([id number]) Assessment & Plan Assessment & Plan (1) Hypertension: Code(s): I10 - Essential (primary) hypertension Category: Medical Qualifiers: Hypertension type: primary hypertension Qualified Code(s): I10 - Essential (primary) hypertension Plan: Continue with blood pressure medication. Decrease salt intake and exercise continuing with amlodipine 10 mg once a day lisinopril 40 mg once a day metoprolol 25 mg once a day (2) Asthma: Code(s): J45.909 - Unspecified asthma, uncomplicated Category: Medical Qualifiers: Asthma severity: mild Asthma persistence: intermittent Asthma complication type: uncomplicated Qualified Code(s): J45.20 - Mild intermittent asthma, uncomplicated Plan: For the asthma on albuterol inhaler montelukast 10 mg once a day. (3) Hypercholesterolemia: Code(s): E78.00 - Pure hypercholesterolemia, unspecified Category: Medical Plan: Avoid fried foods, chicken skin, eggs, butter margarine, pastries and meat. Be it pork or beef they have a lot of cholesterol on atorvastatin 10 mg once a day. LDL goal of less than 130 and triglyceride of less than 150 (4) GERD (gastroesophageal reflux disease): Code(s): K21.9 - Gastro-esophageal reflux disease without esophagitis Category: Medical Qualifiers: Esophagitis presence: without esophagitis Qualified Code(s): K21.9 - Gastro-esophageal reflux disease without esophagitis Plan: Avoid the foods that causes that usually spicy foods, tomato products, juices, coffee, soda and foods that your sensitive to. After eating do not lie down, allow 3-4 hours before in lie down. And keep the head of bed above 30 degrees to avoid the acid from going up. (5) Generalized anxiety disorder: Comment: decline referral and counselling11/2021 Code(s): F41.1 - Generalized anxiety disorder Category: Medical Plan: Continue with present therapy. Plan - Continue current regimen for asthma management with albuterol inhaler and montelukast 10 mg once daily. - Maintain treatment for hypercholesterolemia with atorvastatin 10 mg once daily; target LDL is less than 130 mg/dL and triglycerides less than 150 mg/dL. - Continue management of essential hypertension with amlodipine 10 mg, lisinopril 40 mg, and metoprolol 25 mg once daily. - Continue current reflux treatment regimen for GERD. - Recommend close interval follow-up for observation of the low-density mesenteric lymph nodes noted in CT scan, as advised. - Reassurance provided for absence of recurrent inguinal hernia; no surgical intervention required at present. - Monitor blood glucose levels, noting previous status of impaired glucose tolerance, aiming for stability. - Patient continues to manage anxiety disorder as per current therapeutic plan.
== END 2024-06-09 12:42 | disposition home or self-care (01) ==
PROVIDERS: PCP Internal Medicine; Visit Provider Internal Medicine
DX: I10 Essential (primary) hypertension (principal); J45.20 Mild intermittent asthma, uncomplicated; E78.00 Pure hypercholesterolemia, unspecified; K21.9 Gastro-esophageal reflux disease without esophagitis; F41.1 Generalized anxiety disorder

== ENCOUNTER → 2024-06-09 12:16 | Outpatient (BNVA) | payer MEDICARE, BC, SELFPAY | PROVIDERS: PCP Internal Medicine; Visit Provider Internal Medicine | DX: I10 Essential (primary) hypertension (principal); J45.20 Mild intermittent asthma, uncomplicated; K21.9 Gastro-esophageal reflux disease without esophagitis; F41.1 Generalized anxiety disorder | CPT/HCPCS: 96127; 99212 ==

== ENCOUNTER 2024-07-21 15:44 | Outpatient (AMB) | payer MEDICARE, BC, SELFPAY ==
[2024-07-21 15:47] VITALS: BP 124/68; PULSE 67; TEMP 36.3; O2SAT 98; BMI 22.3
--- NOTE | 2024-07-21 15:47 | MHC.PC.OV ---
Vital Signs 07/21/24 15:47 Height 5 ft 10 in Weight 155 lb 6 oz BMI 22.3 BP 124/68 Blood Pressure Location Lt brachial Position Sitting Pulse 67 Pulse Source Pulse Oximeter Temp 97.3 F Temp Source Temporal Artery Scan Pulse Oximetry (%) 98 Oxygen Delivery Method Room Air Intake Visit Reasons: discuss neurology referral Ram Press Operator Required: No Logistics Analytics Manager: Present Accompanied by: Spouse Allergies citalopram [Celexa] Allergy (Unknown, Verified 07/21/24 15:47) Difficulty Breathing finasteride Allergy (Verified 07/21/24 15:47) Muscle cramps fluticasone furoate [From Arnuity Ellipta] Adverse Reaction (Intermediate, Verified 07/21/24 15:47) hoarsenss Tobacco use date assessed: 05/08/24 Fall risk assessment: No Falls in past year Last assessed Fall Risk: 07/21/24 Dental Screening Dental Screen Date: 05/08/24 HPI discuss neurology referral HPI Details complains last year complains of VELA and weakness of both arms PFSH Medical History Colon cancer screening Left inguinal hernia Hyperkalemia Cataracts, bilateral Kidney congenitally absent, right BPH (benign prostatic hyperplasia) GERD (gastroesophageal reflux disease) Degenerative disc disease Erectile dysfunction Hypertension Closed fibular fracture Asthma Hypercholesterolemia Tubular adenoma of colon Surgical History History of left inguinal hernia repair Hx of circumcision Hx of colonoscopy History of right inguinal hernia repair History of shoulder surgery H/O cataract removal with insertion of prosthetic lens History of arthroscopy of left knee History of tonsillectomy History of bunionectomy Family History Father Prostate cancer Mother Stroke Hypertension Brother Myocardial infarction Social History Housing: Condominium Alcohol intake: former Patient Tobacco Use Status: Former Tobacco user Tobacco use type: Cigarette Years Smoked: quit smoking 1984 e-Cigarette/Vaping Use: Never Used Second Hand Smoke Exposure: No service: Yes Current occupational status: retired Cognitive needs: No Hearing needs: No Vision needs: Yes Questionnaire PHQ-9 Over the last 2 weeks, how often have you been bothered by any of the following problems? 1. Little interest or pleasure in doing things: nearly every day 2. Feeling down, depressed, or hopeless: nearly every day 3. Trouble falling or staying asleep, or sleeping too much: nearly every day 4. Feeling tired or having little energy: nearly every day 5. Poor appetite or overeating: not at all 6. Feeling bad about yourself - or that you are a failure or have let yourself or your family down: nearly every day 7. Trouble concentrating on things, such as reading the newspaper or watching television: not at all 8. Moving or speaking so slowly that other people could have noticed. Or the opposite - being so fidgety or restless that you have been moving around a lot more than usual: several days 9. Thoughts that you would be better off or of hurting yourself in some way: not at all Total score: 16 Depression Screening Interpretation: Positive Depression Screening Done: Yes 76176 - PHQ-9 Billing: Yes Source: Developed by Drs. Ranjith Damian, Lis Du, Benji Blanco and colleagues, with an educational francheska from [email or web address]. Thrive Questionnaire Date Thrive assessed: 05/08/24 NICOLE-7 AMB Questionnaire NICOLE-7 Date NICOLE - 7 assessed: 05/08/24 Source: Developed by Drs. Ranjith Damian, Benji Guillermo and colleagues, with an educational francheska from [email or web address]. Physical exam (Primary Care) Vital Signs: Last Vital Signs Temp 97.3 F 07/21/24 15:47 Pulse 67 07/21/24 15:47 BP 124/68 07/21/24 15:47 Pulse Ox 98 07/21/24 15:47 Oxygen Delivery Method Room Air 07/21/24 15:47 BMI result Body Mass Index 22.3 Tobacco/Smoking Status: Tobacco use Status Tobacco use date assessed 05/08/24 07/21/24 15:48 Patient Tobacco Use Status Former Tobacco user 07/21/24 15:48 Tobacco use type Cigarette 07/21/24 15:48 e-Cigarette/Vaping Use Never Used 07/21/24 15:48 PHQ-9: PHQ-9 Score PHQ-9: Total score 16 07/21/24 16:37 Depression Screening Interpretation: Positive Thrive Assessment: Date of Thrive Assessment Date Thrive assessed 05/08/24 07/21/24 15:48 Const General: alert; No acute distress Eyes Conjunctivae: conjunctivae normal Resp Auscultation: clear to auscultation bilaterally Cardio Rate: regular rate Rhythm: regular rhythm GI Inspection: Yes normal to inspection Extrem General: Yes normal to inspection and No edema Coding Level of Care Code Est Pt Level 4 (34213) Diagnoses Hypercholesterolemia E78.00 Mild intermittent asthma without complication J45.20 Asthma complication type: uncomplicated Asthma persistence: intermittent Asthma severity: mild Gastroesophageal reflux disease without esophagitis K21.9 Esophagitis presence: without esophagitis Benign prostatic hyperplasia with urinary frequency N40.1; R35.0 Lower urinary tract symptom detail: urinary frequency Lower urinary tract symptom presence: symptoms present Impaired glucose tolerance R73.02 Generalized anxiety disorder F41.1 Headache R51.9 Bilateral hearing loss, unspecified hearing loss type H91.93 Hearing loss type: unspecified Laterality: bilateral Additional Codes PHQ-9 - 23726 - PHQ-9 Billing: Yes ([id number]) Assessment & Plan Assessment & Plan (1) Hypercholesterolemia: Code(s): E78.00 - Pure hypercholesterolemia, unspecified Category: Medical Plan: Avoid fried foods, chicken skin, eggs, butter margarine, pastries and meat. Be it pork or beef they have a lot of cholesterol LDL goal of less than 130 and triglyceride of less than 150 on atorvastatin (2) Asthma: Code(s): J45.909 - Unspecified asthma, uncomplicated Category: Medical Qualifiers: Asthma complication type: uncomplicated Asthma persistence: intermittent Asthma severity: mild Qualified Code(s): J45.20 - Mild intermittent asthma, uncomplicated Plan: Patient on albuterol inhaler DuoNeb montelukast (3) GERD (gastroesophageal reflux disease): Code(s): K21.9 - Gastro-esophageal reflux disease without esophagitis Category: Medical Qualifiers: Esophagitis presence: without esophagitis Qualified Code(s): K21.9 - Gastro-esophageal reflux disease without esophagitis Plan: Avoid the foods that causes that usually spicy foods, tomato products, juices, coffee, soda and foods that your sensitive to. After eating do not lie down, allow 3-4 hours before in lie down. And keep the head of bed above 30 degrees to avoid the acid from going up. (4) BPH (benign prostatic hyperplasia): Code(s): N40.0 - Benign prostatic hyperplasia without lower urinary tract symptoms Category: Medical Qualifiers: Lower urinary tract symptom detail: urinary frequency Lower urinary tract symptom presence: symptoms present Qualified Code(s): N40.1 - Benign prostatic hyperplasia with lower urinary tract symptoms; R35.0 - Frequency of micturition Plan: On tamsulosin (5) Impaired glucose tolerance: Code(s): R73.02 - Impaired glucose tolerance (oral) Category: Medical Plan: Decrease the amount of carbohydrate intake, pasta, bread, rice and potatoes are all sugar and that is aside from all the sweet stuff, remember that fruits are good but they are Sweet also. (6) Generalized anxiety disorder: Comment: decline referral and counselling11/2021 Code(s): F41.1 - Generalized anxiety disorder Category: Medical Plan: Continue with therapy. (7) Headache: Code(s): R51.9 - Headache, unspecified Category: Medical (8) Hearing deficit: Code(s): H91.90 - Unspecified hearing loss, unspecified ear Category: Medical Qualifiers: Hearing loss type: unspecified Laterality: bilateral Qualified Code(s): H91.93 - Unspecified hearing loss, bilateral Plan: will reach out for the hearing aid Plan History of Present Illness The patient is a 74-year-old male presenting with a request to review his multiple chronic conditions. He reported issues including asthma, hypercholesterolemia, BPH, GERD, impaired glucose tolerance, generalized anxiety disorder, and essential hypertension. After a neuro-orthopedic consultation, he was diagnosed with left shoulder subacromial impingement syndrome. He experienced temporary uncoordination and strength loss in his arms, accompanied by hearing loss, but these symptoms have partially resolved over time. His blood tests and cholesterol levels are stable and within acceptable ranges as of January. The patient is contemplating further evaluation with a CT scan but is unsure of its necessity due to symptom resolution. Health Maintenance - Blood work from January with normal CBC, electrolytes, renal, and liver functions. - Cholesterol controlled with LDL at 103, and recommendations for maintaining LDL below 130. - Scheduled for follow-up blood work before August appointment. Social History - The patient mentions increased meat and salt intake. - He has experienced weight loss of eight pounds. - Currently only takes bupropion for anxiety and is contemplating discontinuing due to perceived ineffectiveness. - Reduced interaction with therapist due to hearing difficulties. - Considering purchasing hearing aids from [facility], contingent upon Medicaid coverage. Review of Systems - Neurological: Reports past uncoordination and strength loss in both arms. - Hearing: Reports recent hearing loss, undergoing hearing tests with recommendation for hearing aids. - Musculoskeletal: Reports left shoulder issues diagnosed as subacromial impingement syndrome. Physical Exam - Neurological- Shows intact neurological function?signs intact on finger squeeze, shoulder shrug, and toe movements. No observed deficits. - General- Stable condition with no significant changes. Results - Labs: CBC and metabolic panel from January were normal. - Cholesterol: LDL at 103 with a goal of less than 130. - Lipid panel shows good cholesterol slightly low at 40, the ideal being over 50. Plan The patient will continue his current asthma and cholesterol management, maintain GERD care with recommended lifestyle modifications, and closely watch glucose levels due to impaired glucose tolerance. Options for managing anxiety with bupropion will remain unless hearing issues hamper its effectiveness. Referral for hearing aids will proceed once Medicaid coverage is confirmed. Orthopedic management of the left shoulder impingement is ongoing, with injections considered if necessary. A CT scan might be pursued for neurological concerns if symptoms reappear. Blood work will be reviewed before the follow-up in August. Patient was informed and verbally consented to the use of an ambient scribe for clinic note documentation during this visit. Discussion Notes We discussed the continuation of the patient?s current regimens for asthma, cholesterol, GERD, and BPH, and the slight elevation in glucose levels. The potential need for hearing aids was explored, intending to proceed when Medicaid conditions are met. Given the patient?s history of shoulder pain and loss of coordination, we considered revisiting the CT scan discussion if symptoms require. We stressed the importance of controlled dietary habits and regular follow-up blood work to check the effectiveness of ongoing treatments. Assured that blood work results have been consistent and showed no alarming changes. The need to address potential hearing loss with aids through [facility] under Medicaid coverage was identified as a priority. Patient Instructions - Continue taking medications as prescribed for asthma, cholesterol, GERD, and BPH. - Monitor blood glucose levels and maintain a balanced diet with less meat and salt intake. - Schedule a follow-up blood work before August appointment. - Proceed with getting hearing aids from [facility] if Medicaid coverage allows. - Remain observant for any recurrence of uncoordinated or neurological symptoms. - Attend Orthopedics for shoulder management if symptoms persist. Orders: Orders CT head for STROKE Today R51.9 - Headache, unspecified Complete Blood Count Auto Diff Today R51.9 - Headache, unspecified Ferritin Today R51.9 - Headache, unspecified UA CC w/rflx Micro + Cult Today R30.0 - Dysuria, R51.9 - Headache, unspecified Comprehensive Met. Panel Today R51.9 - Headache, unspecified Thyroid Stimulating Hormone Today R51.9 - Headache, unspecified Free T4 (Free Thyroxine) Today R51.9 - Headache, unspecified
== END 2024-07-21 16:51 | disposition home or self-care (01) ==
LOC: HO.HMCH 15:44
PROVIDERS: PCP Internal Medicine; Visit Provider Internal Medicine
DX: E78.00 Pure hypercholesterolemia, unspecified (principal); J45.20 Mild intermittent asthma, uncomplicated; K21.9 Gastro-esophageal reflux disease without esophagitis; N40.1 Benign prostatic hyperplasia with lower urinary tract symptoms; R35.0 Frequency of micturition; R73.02 Impaired glucose tolerance (oral); F41.1 Generalized anxiety disorder; R51.9 Headache, unspecified; H91.93 Unspecified hearing loss, bilateral

== ENCOUNTER → 2024-07-21 15:44 | Outpatient (BNVA) | payer MEDICARE, BC, SELFPAY | PROVIDERS: PCP Internal Medicine; Visit Provider Internal Medicine | DX: E78.00 Pure hypercholesterolemia, unspecified (principal); J45.20 Mild intermittent asthma, uncomplicated; K21.9 Gastro-esophageal reflux disease without esophagitis; N40.1 Benign prostatic hyperplasia with lower urinary tract symptoms; R35.0 Frequency of micturition; R73.02 Impaired glucose tolerance (oral); F41.1 Generalized anxiety disorder; R51.9 Headache, unspecified; H91.93 Unspecified hearing loss, bilateral | CPT/HCPCS: 96127; 99212 ==

== ENCOUNTER 2024-09-07 07:22 | Outpatient (REF) | payer MEDICARE, BC, SELFPAY ==
--- NOTE | ~2024-09-07 | CT_ITS ---
CLINICAL HISTORY: HEADACHES CT head without contrast Comparison: None Findings: No intra-axial mass, midline shift, hydrocephalus, or acute hemorrhage. No significant atrophy-like change or white matter disease. The visualized paranasal sinuses and mastoid air cells are normal. The orbits are unremarkable. There is no acute fracture. IMPRESSION: 1. No acute intracranial findings. This document has been electronically signed by: Sonido Lucio MD on 09/07/2024 16:04:11
[2024-09-07 07:45] LABS: MANUAL DIFF FLAG NO
[2024-09-07 08:19] LABS: Basophils Absolute Auto 0.1 X10*3/uL (0.0-0.2); Basophils Percent Auto 0.6 % (0-2); Eosinophils Absolute Auto 0.1 X10*3/uL (0.0-0.4); Eosinophils Percent Auto 1.8 % (0-4); Hematocrit 45.6 % (42.0-52.0); Hemoglobin 16.3 g/dl (14.0-18.0); Imm Gran Abs Auto 0.01 X10*3/uL (0.00-0.03); Imm Gran Pct Auto 0.1 % (0.0-0.4); Lymphocytes Absolute Auto 1.7 X10*3/uL (1.2-4.9); Lymphocytes Percent Auto 21.8 % (20-40); Mean Corpuscular HGB Conc 35.7 g/dl (31.0-36.0); Mean Corpuscular Hemoglobin 32.3 pg (27.0-33.0); Mean Corpuscular Volume 90.5 fL (80.0-98.0); Monocytes Absolute Auto 0.5 X10*3/uL (0.1-1.2); Neutrophils Absolute Auto 5.3 x10*3/uL (2.0-8.3); Neutrophils Percent Auto 68.7 % (45-73); Platelet Count 195 X10*3/uL (160-400); Red Blood Count 5.04 X10*6/uL (4.60-5.80); Red Cell Distribution Width 12.4 % (11.0-16.0); White Blood Count 7.7 X10*3/uL (4.8-10.8)
[2024-09-07 08:52] LABS: Alanine Aminotransferase 21 U/L (0-40); Albumin Level 3.9 g/dL (3.5-5.0); Alkaline Phosphatase 105 U/L (39-117); Anion Gap 10 (12-20); Aspartate Amino Transferase 25 U/L (5-37); Blood Urea Nitrogen 20 mg/dL (9-16); Calcium 8.7 mg/dL (8.4-10.2); Carbon Dioxide 29 mmol/L (22-29); Chloride 106 mmol/L (96-108); Estimated Glomerular Filt Rate > 60; Glucose Random 102 mg/dL (60-115); Potassium 3.6 mmol/L (3.3-5.1); Sodium 141 mmol/L (135-145); Total Protein 6.4 g/dL (6.5-8.0)
[2024-09-07 09:09] LABS: Ferritin 129 ng/mL (20-250); Free T4 (Free Thyroxine) 1.09 ng/dL (0.71-1.85); Thyroid Stimulating Hormone 1.46 uIU/mL (0.32-4.0)
[2024-09-08 11:34] LABS: Appearance Urine Clear; Color Urine Dark Yellow; Glucose Urine UA Negative (Negative); Leukocyte Esterase Urine Small (1+) (Negative); Nitrite Urine Negative (Negative); Specific Gravity - Urine 1.025 (1.005-1.025); UMIC TRIGGER UACC YES; Urine Blood Negative (Negative); Urine Ketones Trace mg/dL (Negative); Urine Protein Negative (Neg-Trace)
[2024-09-08 11:53] LABS: Bacteria Urine None Seen (None Seen); Calcium Oxalate Crystals Urine Present; Hyaline Casts Urine 0-2 /LPF (0-2); RBC Urine 0-2 /HPF (0-2); Squamous Epithelial Cell Urine 0-2 /HPF (0-2); UACC Culture Trigger YES
== END 2024-09-07 07:23 | disposition home or self-care (01) ==
LOC: HO.CT 07:22
PROVIDERS: PCP Internal Medicine; Visit Provider Internal Medicine
DX: R51.9 Headache, unspecified (principal); R30.0 Dysuria
CPT/HCPCS: 36415; 70450; 80053; 81001; 82728; 84439; 84443; 85025

== ENCOUNTER → 2024-09-07 07:25 | Outpatient (BNV) | payer MEDICARE, BC, SELFPAY | PROVIDERS: PCP Internal Medicine; Visit Provider Radiology Diagnostic Radiology | DX: R51.9 Headache, unspecified (principal) | CPT/HCPCS: 70450 ==

== ENCOUNTER 2024-09-10 09:48 | Outpatient (AMB) | payer MEDICARE, BC, SELFPAY ==
[2024-09-10 09:50] VITALS: BP 122/62; PULSE 59; O2SAT 97; BMI 22.2
--- NOTE | 2024-09-10 09:50 | A.OFFPC_ITS ---
Vital Signs 09/10/24 09:50 Height 5 ft 10 in Weight 155 lb BMI 22.2 BP 122/62 Blood Pressure Location Lt brachial Position Sitting Pulse 59 Pulse Source Pulse Oximeter Pulse Oximetry (%) 97 Oxygen Delivery Method Room Air Intake Visit Reasons: NICOLE, HTN Allergies citalopram [Celexa] Allergy (Unknown, Verified 09/10/24 09:51) Difficulty Breathing finasteride Allergy (Verified 09/10/24 09:51) Muscle cramps fluticasone furoate [From Arnuity Ellipta] Adverse Reaction (Intermediate, Verified 09/10/24 09:51) hoarsenss Medication List - Last Reconciled 09/10/24 by Kellen Perez, alprazolam 0.25 mg PO BID PRN 30 days amlodipine 10 mg PO DAILY aspirin 81 mg PO DAILY atorvastatin 10 mg PO DAILY 90 days calcium carbonate-mag hydroxid 1,000-200 mg (Antacid (calcium carb-magnesium hyd)) tabs PO cetirizine (Zyrtec) 10 mg PO DAILY PRN dutasteride (Avodart) 0.5 mg PO DAILY glucosamine sulfate (Glucosamine) 500 mg PO DAILY ipratropium-albuterol 0.5 mg-3 mg(2.5 mg base)/3 mL 3 mL inhalation QID PRN lisinopril 40 mg PO DAILY metoprolol succinate ER 25 mg PO DAILY montelukast 10 mg PO DAILY omeprazole 20 mg PO BID 90 days sertraline 50 mg PO DAILY tamsulosin 0.4 mg PO DAILY trazodone 50 mg PO DAILY Tobacco use date assessed: 05/08/24 Fall risk assessment: No Falls in past year Last assessed Fall Risk: 09/10/24 Dental Screening Dental Screen Date: 05/08/24 [facility] Medical History Colon cancer screening Left inguinal hernia Hyperkalemia Cataracts, bilateral Kidney congenitally absent, right BPH (benign prostatic hyperplasia) GERD (gastroesophageal reflux disease) Degenerative disc disease Erectile dysfunction Hypertension Closed fibular fracture Asthma Hypercholesterolemia Tubular adenoma of colon Surgical History History of left inguinal hernia repair Hx of circumcision Hx of colonoscopy History of right inguinal hernia repair History of shoulder surgery H/O cataract removal with insertion of prosthetic lens History of arthroscopy of left knee History of tonsillectomy History of bunionectomy Family History Father Prostate cancer Mother Stroke Hypertension Brother Myocardial infarction [facility] Alcohol intake: former Patient Tobacco Use Status: Former Tobacco user Tobacco use type: Cigarette Years Smoked: quit smoking 1985 e-Cigarette/Vaping Use: Never Used Second Hand Smoke Exposure: No service: Yes Current occupational status: retired Cognitive needs: No Hearing needs: No Vision needs: Yes Questionnaire PHQ-9 Over the last 2 weeks, how often have you been bothered by any of the following problems? 1. Little interest or pleasure in doing things: more than half the days 2. Feeling down, depressed, or hopeless: more than half the days 3. Trouble falling or staying asleep, or sleeping too much: not at all 4. Feeling tired or having little energy: several days 5. Poor appetite or overeating: not at all 6. Feeling bad about yourself - or that you are a failure or have let yourself or your family down: several days 7. Trouble concentrating on things, such as reading the newspaper or watching television: not at all 8. Moving or speaking so slowly that other people could have noticed. Or the opposite - being so fidgety or restless that you have been moving around a lot more than usual: not at all 9. Thoughts that you would be better off or of hurting yourself in some way: not at all Total score: 6 Depression Screening Interpretation: Positive Depression Screening Done: Yes Source: Developed by Drs. Ranjith Damian, Lis Du, Benji Blanco and colleagues, with an educational francheska from [employer]. Thrive Questionnaire Date Thrive assessed: 05/08/24 I am a: Patient What is your living situation today?: I have a steady place to live Within the past 12 months, did the food you bought not last and you didn't have the money to get more?: Never true Within the past 12 months, did you worry whether your food would run out before you got money to buy more?: Never true Do you have trouble paying for medicines?: No Do you have trouble getting transportation to medical appointments?: No Do you have trouble paying your heating and electricity bill?: No Do you have trouble taking care of your child, family member or friend?: No Do you have trouble with day-to-day activities such as bathing, preparing meals, shopping, managing finances, etc.?: No Are you currently unemployed and looking for a job?: No Are you interested in more education?: No Please select the resources that you would like help with: None Currently or been in a relationship where the following occur: No concerns reported THRIVE Score: 0 AUDIT C Alcohol Use Questionnaire (AUDIT-C) 1. How often do you have a drink containing alcohol?: Never Total Score: 0 NICOLE-7 AMB Questionnaire NICOLE-7 Date NICOLE - 7 assessed: 05/08/24 Feeling nervous, anxious, or on edge: 0 = Not at all Not being able to stop or control worryin = Not at all Worrying too much about different things: 0 = Not at all Trouble relaxin = Not at all Being so restless that it is hard to sit still: 0 = Not at all Becoming easily annoyed or irritable: 0 = Not at all Feeling afraid as if something awful might happen: 0 = Not at all Total NICOLE-7 score (0-4 normal; 5-9 mild; 10-14 moderate; 15-21 severe): 0 Source: Developed by Drs. Ranjith Damian, Lis Du, Benji Blanco and colleagues, with an educational francheska from [employer]. Physical exam (Primary Care) Vital Signs: Last Vital Signs Pulse 59 09/10/24 09:50 BP 122/62 09/10/24 09:50 Pulse Ox 97 09/10/24 09:50 Oxygen Delivery Method Room Air 09/10/24 09:50 BMI result Body Mass Index 22.2 Tobacco/Smoking Status: Tobacco use Status Tobacco use date assessed 05/08/24 09/10/24 09:56 Patient Tobacco Use Status Former Tobacco user 09/10/24 09:56 Tobacco use type Cigarette 09/10/24 09:56 e-Cigarette/Vaping Use Never Used 09/10/24 09:56 PHQ-9: PHQ-9 Score PHQ-9: Total score 6 09/10/24 10:02 Depression Screening Interpretation: Positive Thrive Assessment: Date of Thrive Assessment Date Thrive assessed 05/08/24 09/10/24 09:56 Currently or been in a relationship where the following occur: No concerns reported Const General: alert; No acute distress Eyes Conjunctivae: conjunctivae normal Resp Auscultation: clear to auscultation bilaterally Cardio Rate: regular rate Rhythm: regular rhythm GI Inspection: Yes normal to inspection Extrem General: Yes normal to inspection and No edema Coding Level of Care Code Est Pt Level 4 (32796) Complex EM visit Add On G2211 Diagnoses Gastroesophageal reflux disease without esophagitis K21.9 Esophagitis presence: without esophagitis Mild intermittent asthma without complication J45.20 Asthma complication type: uncomplicated Asthma persistence: intermittent Asthma severity: mild Hypercholesterolemia E78.00 Benign prostatic hyperplasia with urinary frequency N40.1; R35.0 Lower urinary tract symptom detail: urinary frequency Lower urinary tract symptom presence: symptoms present Impaired glucose tolerance R73.02 Generalized anxiety disorder F41.1 Primary hypertension I10 Hypertension type: primary hypertension Headache R51.9 Assessment & Plan Assessment & Plan (1) GERD (gastroesophageal reflux disease): Code(s): K21.9 - Gastro-esophageal reflux disease without esophagitis Category: Medical Qualifiers: Esophagitis presence: without esophagitis Qualified Code(s): K21.9 - Gastro-esophageal reflux disease without esophagitis Plan: Avoid the foods that causes that usually spicy foods, tomato products, juices, coffee, soda and foods that your sensitive to. After eating do not lie down, allow 3-4 hours before in lie down. And keep the head of bed above 30 degrees t o avoid the acid from going up. On omeprazole (2) Asthma: Code(s): J45.909 - Unspecified asthma, uncomplicated Category: Medical Qualifiers: Asthma complication type: uncomplicated Asthma persistence: intermittent Asthma severity: mild Qualified Code(s): J45.20 - Mild intermittent asthma, uncomplicated Plan: . Patient is stable without the use of the inhalers (3) Hypercholesterolemia: Code(s): E78.00 - Pure hypercholesterolemia, unspecified Category: Medical Plan: Avoid fried foods, chicken skin, eggs, butter margarine, pastries and meat. Be it pork or beef they have a lot of cholesterol on atorvastatin 10 mg once a day (4) BPH (benign prostatic hyperplasia): Code(s): N40.0 - Benign prostatic hyperplasia without lower urinary tract symptoms Category: Medical Qualifiers: Lower urinary tract symptom detail: urinary frequency Lower urinary tract symptom presence: symptoms present Qualified Code(s): N40.1 - Benign prostatic hyperplasia with lower urinary tract symptoms; R35.0 - Frequency of micturition Plan: Continuing with tamsulosin and Avodart (5) Impaired glucose tolerance: Code(s): R73.02 - Impaired glucose tolerance (oral) Category: Medical Plan: Decrease the amount of carbohydrate intake, pasta, bread, rice and potatoes are all sugar and that is aside from all the sweet stuff, remember that fruits are good but they are Sweet also. (6) Generalized anxiety disorder: Comment: decline referral and counselling11/2021, Counselling Private Q 3 weeks Code(s): F41.1 - Generalized anxiety disorder Category: Medical Plan: Presently on alprazolam as needed sertraline 50 mg once a day and trazodone (7) Hypertension: Code(s): I10 - Essential (primary) hypertension Category: Medical Qualifiers: Hypertension type: primary hypertension Qualified Code(s): I10 - Essential (primary) hypertension Plan: Continue with blood pressure medication. Decrease salt intake and exercise on metoprolol 25 mg once a day lisinopril 40 mg once a day and amlodipine 10 mg once a day (8) Headache: Code(s): R51.9 - Headache, unspecified Category: Medical Plan: CT scan done negative results Plan History of Present Illness The patient is a 74-year-old male presenting for chronic disease management and routine health evaluation. He has an established history of hypercholesterolemia, managed with atorvastatin 10 mg daily, showing stable LDL at 103 mg/dL as of his last test in January 2024. He has been diagnosed with Gastroesophageal Reflux Disease (GERD) and maintains symptom control with omeprazole. He reports stable management of his asthma without recent use of inhalers, currently prescribed montelukast. The patient has impaired glucose tolerance, with a mildly elevated fasting glucose level of 102 mg/dL noted on September 07, but denies any symptoms of hypoglycemia or hyperglycemia. His hypertension is controlled with metoprolol, lisinopril, and amlodipine, alongside stable blood pressure readings. He experiences mild headaches for which a recent CT scan was conducted in August, showing negative results. The patient's Benign Prostatic Hyperplasia (BPH) is managed with tamsulosin and avidoid, although he notes nocturia, waking three to four times per night. Anxiety, managed with sertraline 50 mg daily, is addressed with regular therapy sessions every three weeks with a private therapist. Routine blood tests reveal normal renal function, electrolytes, and liver function, with no anemia detected . Health Maintenance - Shingles vaccination: up to date - Tetanus vaccination: up to date - Respiratory Syncytial Virus (RSV) vaccination: up to date - Last colonoscopy in March 2021, next one due next year Social History - Reports seeing a private therapist every three weeks for anxiety management Review of Systems - General: Denies recent weight changes. - Cardiovascular: Denies chest pain or palpitations. - Respiratory: Denies shortness of breath or wheezing. - Gastrointestinal: Reports nocturia with three to four awakenings per night, denies constipation or abdominal pain. - Neurological: Reports headaches. - Psychological: Denies depression but reports anxiety. - Genitourinary: Reports nocturia, denies dysuria or urinary frequency. Physical Exam Results - Labs: Normal blood count, normal electrolytes, normal liver function, fasting blood glucose 102 mg/dL - Tests: CT scan in August negative for acute findings - Diagnostics: Last LDL cholesterol level 103 mg/dL as of January 2024 Plan The patient will continue with atorvastatin at 10 mg for hypercholesterolemia and omeprazole for GERD management. Asthma remains stable, managed with montelukast. Hypertension management will persist with metoprolol, lisinopril, and amlodipine given stable control. Blood glucose will be monitored due to slight elevation, but current levels do not warrant intervention. Headache mat carrasquillo will remain symptomatic, given negative CT results. Anxiety is treated with sertraline and complemented with therapy; no changes needed. BPH management includes tamsulosin and avidoid, with monitoring of nocturia. Annual assessments and adjustments operate within symptomatology changes. Patient was informed and verbally consented to the use of an ambient scribe for clinic note documentation during this visit. Discussion Notes During the visit, we discussed maintaining current therapies for hypercholesterolemia and GERD, given stable indications. The importance of continued asthma, hypertension control, and monitoring of blood glucose was highlighted. I recommended ongoing headache management due to stable symptoms and negative CT results. Anxiety therapy with sertraline was affirmed, and private therapy every three weeks supports management. We reviewed renal, liver, electrolyte, and blood count lab results, all of which are currently satisfactory. His anticipation for next year's colonoscopy and potential adjustments based on symptom changes were noted. Patient Instructions - Continue taking prescribed medications as directed. - Monitor blood pressure and report significant changes. - Maintain regular therapy sessions for anxiety. - Notify me if nocturia worsens or new symptoms arise. - Schedule the due colonoscopy next year. - Maintain a healthy diet and exercise as advised.
== END 2024-09-10 10:12 | disposition home or self-care (01) ==
LOC: HO.HMCH 09:49
PROVIDERS: PCP Internal Medicine; Visit Provider Internal Medicine
DX: K21.9 Gastro-esophageal reflux disease without esophagitis (principal); J45.20 Mild intermittent asthma, uncomplicated; E78.00 Pure hypercholesterolemia, unspecified; N40.1 Benign prostatic hyperplasia with lower urinary tract symptoms; R35.0 Frequency of micturition; R73.02 Impaired glucose tolerance (oral); F41.1 Generalized anxiety disorder; I10 Essential (primary) hypertension; R51.9 Headache, unspecified

== ENCOUNTER → 2024-09-10 09:48 | Outpatient (BNVA) | payer MEDICARE, BC, SELFPAY | PROVIDERS: PCP Internal Medicine; Visit Provider Internal Medicine | DX: K21.9 Gastro-esophageal reflux disease without esophagitis (principal); J45.20 Mild intermittent asthma, uncomplicated; E78.00 Pure hypercholesterolemia, unspecified; N40.1 Benign prostatic hyperplasia with lower urinary tract symptoms; R35.0 Frequency of micturition; R73.02 Impaired glucose tolerance (oral); F41.1 Generalized anxiety disorder; R51.9 Headache, unspecified; I10 Essential (primary) hypertension | CPT/HCPCS: 99212 ==

== ENCOUNTER 2025-03-09 10:03 | Outpatient (AMB) | payer MEDICARE, BC, SELFPAY ==
[2025-03-09 10:07] VITALS: BP 136/76; PULSE 79; TEMP 36.3; O2SAT 94; BMI 25.4
--- NOTE | 2025-03-09 10:07 | A.OFFVIS_ITS ---
Intake Vital Signs 03/09/25 10:07 Height 5 ft 10 in Weight 177 lb 4 oz BMI 25.4 BP 136/76 Blood Pressure Location Lt brachial Position Sitting Pulse 79 Pulse Source Pulse Oximeter Temp 97.3 F Temp Source Temporal Artery Scan Pulse Oximetry (%) 94 Oxygen Delivery Method Room Air Intake Visit Reasons: awv Allergies citalopram (Celexa) Allergy (Unknown, Verified 03/09/25 10:16) Difficulty Breathing finasteride Allergy (Verified 03/09/25 10:16) Muscle cramps fluticasone furoate (From Arnuity Ellipta) Adverse Reaction (Intermediate, Verified 03/09/25 10:16) hoarsenss Medication List - Last Reconciled 03/09/25 by Kellen Perez, amlodipine 10 mg PO DAILY aspirin 81 mg PO DAILY atorvastatin 10 mg PO DAILY 90 days calcium carbonate-mag hydroxid 1,000-200 mg (Antacid (calcium carb-magnesium hyd)) tabs PO cetirizine (Zyrtec) 10 mg PO DAILY PRN dutasteride (Avodart) 0.5 mg PO DAILY glucosamine sulfate (Glucosamine) 500 mg PO DAILY lisinopril 40 mg PO DAILY metoprolol succinate ER 25 mg PO DAILY omeprazole 20 mg PO BID 90 days tamsulosin 0.4 mg PO DAILY venlafaxine ER 75 mg PO DAILY HPI awv HPI Details [facility]rology group of [facility], Orthopedics is [facility], surgeon Dr. Gduino, [facility], pulmonary Dr. Bess, ENT Dr. Mcgregor [facility] Medical History Colon cancer screening Left inguinal hernia Hyperkalemia Cataracts, bilateral Kidney congenitally absent, right BPH (benign prostatic hyperplasia) GERD (gastroesophageal reflux disease) Degenerative disc disease Erectile dysfunction Hypertension Closed fibular fracture Asthma Hypercholesterolemia Tubular adenoma of colon Surgical History History of left inguinal hernia repair Hx of circumcision Hx of colonoscopy History of right inguinal hernia repair History of shoulder surgery H/O cataract removal with insertion of prosthetic lens History of arthroscopy of left knee History of tonsillectomy History of bunionectomy Family History Father Prostate cancer Mother Stroke Hypertension Brother Myocardial infarction Social History Housing: Condominium Alcohol intake: former Patient Tobacco Use Status: Former Tobacco user Tobacco use type: Cigarette Years Smoked: quit smoking 1985 e-Cigarette/Vaping Use: Never Used Second Hand Smoke Exposure: No service: Yes Current occupational status: retired Cognitive needs: No Hearing needs: No Vision needs: Yes Questionnaire Medicare Wellness Checkup [age] What gender do you identify with?: male During the past 4 weeks, how much have you been bothered by emotional problems such as feeling anxious, depressed, irritable, sad or downhearted, and blue?: moderately During the past 4 weeks, has your physical & emotional health limited your social activities with family, friends, neighbors, or groups?: moderately During the past 4 weeks, how much bodily pain have you generally had?: no pain During the past 4 weeks, was someone available to help you if you needed & wanted help?: yes, as much as I wanted During the past 4 weeks, what was the hardest physical activity you could do for at least 2 minutes?: moderate Can you get to places out of walking distance without help? (For eg., can you travel alone on buses, taxis or drive your car?): Yes Can you go shopping for groceries or clothes without someone's help?: Yes Can you prepare your own meals?: Yes Can you do your housework without help?: Yes Because of any health problems, do you need the help of another person with your personal care needs such as eating, bathing, dressing or getting around the house?: No Can you handle your own money without help?: Yes During the past 4 weeks, how would you rate your health in general?: good During the past 4 weeks how have things been going for you?: good & bad parts about equal Are you having difficulties driving your car?: no Do you always fasten your seat belt when you are in a car?: yes, usually During past 4 weeks, have you been bothered by the following: never: Falling or dizzy when standing up, Trouble eating well?, Teeth or denture problems?, Problems using the telephone? and Tiredness or fatigue? and always: Sexual problems? Have you fallen 2 or more times in the past year?: No Are you afraid of falling?: No Are you a smoker?: no During the past 4 weeks, how many drinks of wine, beer, or other alcoholic beverages did you have?: no alcohol at all Do you exercise for about 20 minutes 3 or more times a week?: yes, some of the time Have you been given information to help with the following?: yes: Hazards in your house that might hurt you? and yes: Keeping track of your medications? How often do you have trouble taking medicines the way you have been told to take them?: I always take medicine as prescribed How confident are you that you can control & manage most of your health problems?: very confident What is your race?: White PHQ-9 Over the last 2 weeks, how often have you been bothered by any of the following problems? 1. Little interest or pleasure in doing things: nearly every day 2. Feeling down, depressed, or hopeless: nearly every day 3. Trouble falling or staying asleep, or sleeping too much: several days 4. Feeling tired or having little energy: several days 5. Poor appetite or overeating: not at all 6. Feeling bad about yourself - or that you are a failure or have let yourself or your family down: nearly every day 7. Trouble concentrating on things, such as reading the newspaper or watching television: not at all 8. Moving or speaking so slowly that other people could have noticed. Or the opposite - being so fidgety or restless that you have been moving around a lot more than usual: not at all 9. Thoughts that you would be better off or of hurting yourself in some way: not at all Total score: 11 Depression Screening Interpretation: Positive Depression Screening Done: Yes 55376 - PHQ-9 Billing: Yes Source: Developed by Drs. Ranjith Damian, Lis Du, Benji Blanco and colleagues, with an educational francheska from [employer]. Review of Systems Const Denies poor appetite and Denies weakness Eyes Denies no additional complaints ENT Reports Normal hearing present, Denies dizziness, Denies nasal congestion, Denies tinnitus and Denies sore throat Card Denies chest pain, Denies syncope, Denies rapid heart rate and Denies dyspnea Resp Denies cough and Denies dyspnea GI Denies change in stool character, Reports constipation, Denies diarrhea, Denies nausea and Denies vomiting Denies dysuria and Denies urinary frequency Neuro Reports Normal hearing present, Denies confusion, Denies dizziness, Denies syncope and Denies weakness Psych Denies confusion Physical Exam Vital Signs: Last Vital Signs Temp 97.3 F 03/09/25 10:07 Pulse 79 03/09/25 10:07 BP 136/76 03/09/25 10:07 Pulse Ox 94 03/09/25 10:07 Oxygen Delivery Method Room Air 03/09/25 10:07 BMI result Body Mass Index 25.4 Const General: No confusion Orientation/consciousness: No confusion HEENT Head: Yes normocephalic Ears: external ears normal and TM's normal bilaterally Face and sinus: Yes normal facial exam Mouth: moist mucous membranes Throat: Yes tonsils normal Eyes Conjunctivae: conjunctivae normal Pupils: Equal, round and reactive pupils present and Pupil accommodation reflex normal Direct Ophthalmoscopy: normal light reflex Neck Neck: No lymphadenopathy Thyroid: Thyroid normal Chest Chest palpation & inspection: normal inspection of the chest Resp Effort & Inspection: normal respiratory effort and no audible wheezes Auscultation: clear to auscultation bilaterally, no crackles, no wheezes and lung sounds not diminished Cardio Rate: regular rate Rhythm: regular rhythm Peripheral pulses: radial pulses present and dorsalis pedis present GI Other: guaiac negative , prostate OK Palpation (GI): no masses Auscultation: normal bowel sounds and normoactive bowel sounds Other: mild bulge R inguinal area Skin General skin exam: no rashes or lesions noted Rashes: no rashes Neuro General: No confusion Cranial nerves: Yes Equal, round and reactive pupils present and Yes Normal hearing present Cognition (Neuro): normal cognition Gait exam (Neuro): Normal gait present Motor exam (neuro): 5/5 motor strength present throughout Deep tendon reflexes (DTR's): Right brachioradialis reflex intensity grade: 2+, Left brachioradialis reflex intensity grade: 2+, Right patellar reflex intensity grade: 2+ and Left patellar reflex intensity grade: 2+ Extrem General: No edema Assessment & Plan Assessment & Plan (1) Encounter for subsequent annual wellness visit (AWV) in Medicare patient: Code(s): Z00.00 - Encounter for general adult medical examination without abnormal findings Plan: Patient is advised to eat healthy, keep well hydrated, keep active and have adequate sleep. (2) Asthma: Code(s): J45.909 - Unspecified asthma, uncomplicated Qualifiers: Asthma complication type: uncomplicated Asthma persistence: intermittent Asthma severity: mild Qualified Code(s): J45.20 - Mild intermittent asthma, uncomplicated Plan: Continue with nebulizer treatment as needed (3) BPH (benign prostatic hyperplasia): Code(s): N40.0 - Benign prostatic hyperplasia without lower urinary tract symptoms Qualifiers: Lower urinary tract symptom detail: urinary frequency Lower urinary tract symptom presence: symptoms present Qualified Code(s): N40.1 - Benign prostatic hyperplasia with lower urinary tract symptoms; R35.0 - Frequency of micturition Plan: Patient follows up with urology on Flomax and Avodart (4) GERD (gastroesophageal reflux disease): Code(s): K21.9 - Gastro-esophageal reflux disease without esophagitis Qualifiers: Esophagitis presence: without esophagitis Qualified Code(s): K21.9 - Gastro-esophageal reflux disease without esophagitis Plan: Avoid the foods that causes that usually spicy foods, tomato products, juices, coffee, soda and foods that your sensitive to. After eating do not lie down, allow 3-4 hours before in lie down. And keep the head of bed above 30 degrees to avoid the acid from going up. (5) Hypertension: Code(s): I10 - Essential (primary) hypertension Qualifiers: Hypertension type: primary hypertension Qualified Code(s): I10 - Essential (primary) hypertension Plan: Continue with blood pressure medication. Decrease salt intake and exercise on amlodipine 10 mg once a day lisinopril 40 mg once a day metoprolol 25 mg once a day (6) Hypercholesterolemia: Code(s): E78.00 - Pure hypercholesterolemia, unspecified Plan: Avoid fried foods, chicken skin, eggs, butter margarine, pastries and meat. Be it pork or beef they have a lot of cholesterol on atorvastatin 10 mg once a day (7) Generalized anxiety disorder: Comment: decline referral and counselling11/2021, Counselling Private Q 3 weeks Code(s): F41.1 - Generalized anxiety disorder Plan: Continue with counseling and therapy. change alprazolam to lorazepam Plan History of Present Illness The patient is a 74-year-old male presenting for an annual well visit. His medical history is significant for asthma, hypercholesterolemia, GERD, BPH, chronic arthritis, generalized anxiety disorder, and impaired glucose tolerance. He has noted a 22-pound weight gain since his last visit, with his weight increasing from 155 lbs to 177 lbs. For BPH with a history of urethral stricture, the patient follows with urology and is managed on Avodart and tamsulosin (Flomax). Regarding his generalized anxiety disorder, he sees a private counselor and takes venlafaxine (Effexor) 75 mg. He is not currently taking trazodone for sleep. He was previously on alprazolam as needed but requests to switch back to lorazepam. His hypertension is treated with amlodipine 10 mg, lisinopril 40 mg, and metoprolol 25 mg daily. For hypercholesterolemia, he reports that he is not currently taking atorvastatin. His last cholesterol test in January 2024 showed an LDL of 103 mg/dL and triglycerides of 101 mg/dL. His last blood sugar in August 2024 was 102 mg/dL. For asthma, he has discontinued montelukast and is not using nebulizer treatments, reporting his breathing is fine. His last colonoscopy was in March 2021, which found a tubular adenoma. The patient recalls being told a 10-year follow-up interval, but records suggest it may be 5 years. He has known allergies to citalopram (Celexa), finasteride, and the Arnuity inhaler. Health Maintenance - Colon Cancer Screening: Last colonoscopy was in March 2021, which showed a tubular adenoma. - There is a discrepancy regarding the follow-up interval, with the patient recalling 10 years and provider records suggesting 5 years. 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 Self. - A stool test for occult blood was negative during the visit. - Vaccinations: Patient is up to date on his flu, shingles, tetanus, RSV, and pneumonia immunizations. - Laboratory Monitoring: A request for blood work, including a lipid panel, has been ordered to be completed on a yearly basis. - Eye Exam: The patient has an upcoming eye appointment scheduled for next week with Dr. Beaver. - Lifestyle Counseling: Discussed the importance of hydration, healthy eating, and staying physically active to manage weight and overall health. Social History - Functional Status: The patient denies any falls and feels steady when walking. - Mental Health Support: He sees a private counselor for generalized anxiety disorder. - Weight Management: Patient has gained 22 pounds, with his weight increasing from 155 lbs to 177 lbs. Review of Systems - Constitutional: Denies fever. - Reports a 22-pound weight gain. - HEENT: Reports hearing is good and does not feel a hearing test is needed yet. - Denies problems with swallowing. - Cardiovascular: Denies chest pain or syncope. - Respiratory: Denies waking up short of breath. - Reports breathing is good. - Gastrointestinal: Reports good bowel movements. - Denies nausea, vomiting, or heartburn. - Genitourinary: Reports a slow urinary stream but states it is fine with medication. - Neurological: Denies dizziness or syncope. - Musculoskeletal: Denies falls or unsteadiness while walking. - Skin: Denies any lumps or bumps. Physical Exam General: Cooperative, healthy appearing, comfortable, no acute distress and well developed Orientation: Patient oriented x3 Limitations: No limitations Head: Normal to inspection Ears: Hearing grossly normal bilaterally Nose: Normal external nose present Face and sinus: Normal facial exam Eyes: Appearance normal, both eyes and all related structures Neck: Normal visual inspection and Yes full ROM Respiratory: Normal respiratory effort and able to speak in complete sentences. Clear to auscultation bilaterally Cardiovascular: Regular rate and rhythm. Normal S1 and S2 GI: Normal to inspection. Soft to palpation and nontender Skin: No rashes or lesions noted Neuro: Patient oriented x3 Extremities: Normal to inspection Results - Lab Results (August 2024): Complete blood count was normal with no anemia. - Electrolytes were normal. - Renal function was stable with a creatinine of 1.04. - Blood sugar was 102 mg/dL. - Liver function tests were normal. - Thyroid function was normal. - Lab Results (January 2024): LDL cholesterol was 103 mg/dL and triglycerides were 101 mg/dL. - In-office Testing: Stool guaiac test was negative. - Past Procedures: A colonoscopy in March 2021 revealed a tubular adenoma. Plan Patient was informed and verbally consented to the use of an ambient scribe for clinic note documentation during this visit. 1. Annual Preventive Care Exam The patient is a 74-year-old male presenting for an annual wellness exam. A notable finding is a 22-pound weight gain. Counseling was provided on the importance of hydration, a healthy diet, and remaining active. Routine blood work, to include a lipid panel, will be ordered for annual monitoring. The patient's vaccinations are up to date. A follow-up appointment is scheduled in three months, and the patient is advised to complete the lab work prior to the visit. 2. Generalized Anxiety Disorder The patient's anxiety is managed with venlafaxine (Effexor) 75 mg and ongoing counseling. He requested to switch his as-needed medication from alprazolam to lorazepam. A prescription for lorazepam, 45 tablets, to be taken as needed was sent to his pharmacy. 3. Hypertension The patient's blood pressure is managed with amlodipine 10 mg, lisinopril 40 mg, and metoprolol 25 mg daily. He will continue his current antihypertensive regimen. 4. Hypercholesterolemia The patient reports non-adherence to atorvastatin. His last lipid panel from January 2024 showed an LDL of 103. A new lipid panel will be ordered as part of his annual labs to reassess his status. 5. Benign Prostatic Hyperplasia The patient is followed by urology for BPH and reports his symptoms are managed with Avodart and tamsulosin. He will continue his current medication and follow- up with urology as directed. 6. History Of Colonic Polyps The patient's last colonoscopy in 2020 found a tubular adenoma. There is confusion regarding the recommended follow-up interval, with the patient believing it is 10 years and records suggesting 5 years. The patient was instructed to contact his sanitation truck driver, Dr. Self, to clarify the appropriate surveillance schedule. An in-office stool guaiac test was negative. 7. Inguinal Hernia Physical exam revealed a palpable bulge consistent with an inguinal hernia. As the hernia is not enlarging and is not painful, the plan is watchful waiting. The patient was advised to seek re-evaluation if it becomes larger or more painful, which would prompt a surgical referral. Discussion Notes I reviewed the patient's current health status and chronic conditions during his annual wellness visit. We discussed his 22-pound weight gain, and I advised him on the importance of healthy eating, adequate hydration, and staying active. Regarding his anxiety, I addressed his request to switch from alprazolam to lorazepam for as-needed use and sent a prescription for 45 tablets to his pharmacy, emphasizing it is for PRN use only. We discussed the uncertainty around his next colonoscopy, as my records indicate a 5-year follow-up while he recalls 10 years. I instructed him to clarify this with his sanitation truck driver. I informed him of a physical exam finding consistent with a small, asymptomatic hernia and advised him on symptoms that would warrant a follow-up, such as increasing size or pain. I ordered routine annual blood work, including a lipid panel, to be done before his next visit. A follow-up appointment was scheduled for three months. Patient Instructions - You have a new prescription for lorazepam. - Take this medication only when you need it for anxiety; do not take it every day. - A lab request for blood work has been sent. - Please have your blood drawn before your next appointment. - Please contact your sanitation truck driver, Dr. Self, to ask when you should have your next colonoscopy. - We found a small hernia during your exam. - Please let me know if it gets bigger or becomes painful. - Continue to focus on drinking plenty of water, eating healthy foods, and staying active to help with your weight and overall health. - Your follow-up appointment is in about three months. Orders: Orders Comprehensive Met. Panel Today I10 - Essential (primary) hypertension Thyroid Stimulating Hormone Today I10 - Essential (primary) hypertension Prostate Specific Antigen Scr Today I10 - Essential (primary) hypertension Vitamin B12 and Folate Today I10 - Essential (primary) hypertension Hemoglobin A1c Today I10 - Essential (primary) hypertension UA CC w/rflx Micro + Cult Today I10 - Essential (primary) hypertension, R30.0 - Dysuria Complete Blood Count Auto Diff Today I10 - Essential (primary) hypertension Free T4 (Free Thyroxine) Today I10 - Essential (primary) hypertension Lipid Panel Today E78.00 - Pure hypercholesterolemia, unspecified, I10 - Esse ntial (primary) hypertension Medications: New lorazepam 0.5 mg PO BID PRN 45 tabs 0RF anxiety F41.1 - Generalized anxiety disorder Quality Reporting (2019) Depression/Bipolar (159/160/161/177) PHQ-9: Total score: 11 Coding Level of Care Code Medicare Subsequent (G0439) Diagnoses Encounter for subsequent annual wellness visit (AWV) in Medicare patient Z00.00 Mild intermittent asthma without complication J45.20 Asthma complication type: uncomplicated Asthma persistence: intermittent Asthma severity: mild Benign prostatic hyperplasia with urinary frequency N40.1; R35.0 Lower urinary tract symptom detail: urinary frequency Lower urinary tract symptom presence: symptoms present Gastroesophageal reflux disease without esophagitis K21.9 Esophagitis presence: without esophagitis Primary hypertension I10 Hypertension type: primary hypertension Hypercholesterolemia E78.00 Generalized anxiety disorder F41.1 Additional Codes PHQ-9 - 63735 - PHQ-9 Billing: Yes ([id number])
--- OUTSIDE RECORDS SUMMARY | 2025-03-09 11:31 | XMS_ITS | Patient Health Record ---
Author Organization [facility] Address [address] [place] [id number] Care Team Providers Care Commercial Subcontractor Name Role Phone Kellen Perez MD Primary Care Provider Ranjith Gaspar [phone] Allergies Allergen (clinical drug ingredient) Drug/Non Drug Allergy documented on EMR Reaction Allergy Type Onset Date Status citalopram Celexa Unknown Drug Allergy Active Reason For Referral No Information Medications Medication SIG (Take, Route, Frequency, Duration) Notes Start Date End Date Status Aspir-81 81mg Active LORazepam 0.5mg Acti ve Advair HFA 230/21 Ac tive Xopenex Active NexIUM 40mg 04/29/2024 04/29/2024 Active Atorvastatin Calcium 10mg Active Amlodipine & Diet Manage Prod 5mg Active Lisinopril 40mg Acti ve Sertraline HCl 200mg Active Problems Problem Type SNOMED Code ICD Code Onset Dates Problem Status W/U Status Risk Notes Problem Left lower quadrant pain (603578483) Abdominal pain, left lower quadrant (789.04) Active confirmed Problem Diverticulosis of colon (846697262) Diverticulosis of colon (562.10) Active confirmed Problem Gastroesophageal reflux disease (352689519) GERD (gastroesophageal reflux disease) (530.81) Active confirmed Problem History of adenomatous polyp of colon (767763141) History of adenomatous polyp of colon (V12.72) Active confirmed Problem Abnormal x-ray o f liver (793.3) Active confirmed Plan Of Treatment Pending Test Test Name Order Date [facility] 05/07/2013 Insurance Providers Payer Name Payer Address Payer Phone Subscriber Number Group Number Insured Name Patient Relationship to Insured Coverage Start Date Coverage End Date MEDICARE OF [place] [address] [place] [address] [phone] [id number] AUSTEN BAUTISTA Self - patient is the insured [facility] [address] [place], [place] [id number] [phone] [id number] AUSTEN BAUTISTA Self - patient is the insured Medical (General) History Medical History History ICD Code colonoscopy 01/11/2006-tubular adenoma r emoved [place]oscopy [place] [address] [facility] tubular adenoma GERD-EGD [place] [address] Steven mortensen----no esophagitis, no Rosa's, no H.pylori hypertension depression anxiety Denies CT,DM,CVA,renal disease asthma Colonoscopy in 10/[address] 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
--- OUTSIDE RECORDS SUMMARY | 2025-03-09 11:31 | XMS_ITS | Encounter Summary ---
Author Organization [facility] Address [address] [place] [address] [place] [phone] Phone Care Team Providers Care Duct Layer Helper Name Role Phone Kellen Perez MD Primary Care Provider [phone] Encounter Details Date Type Department Care Team (Late st Contact Info) Description 01/27/2024 Procedure Pass [facility], Ct Scan - [address] [address] Social History Tobacco Use Types Packs/Day Years Used Date Smoking Tobacco: Former Cigarettes Q uit: 1989 Smokeless Tobacco: Never Alcohol Use Standard Drinks/Week Comments Not Currently 0 (1 standard drink = 0.6 oz pur e alcohol) sober since 1991 Education Answer Date Recorded Are you interested in more education? Not on radha e 08/24/2022 Are you concerned about learning? Not on file 08/24/2022 No 08/24/2022 No 08/24/2022 Digital Access Answer Date Recorded No 09/22/2022 No 09/22/2022 Reliable internet access at home? Not on file 09/22/2022 Device with a working camera? Not on file Intimate Partner Violence Answer Date R ecorded Are you denied basic needs s uch as food, clothing, or medical care? No 01/27/2024 In the past 12 months have y ou been in a relationship with a person who hurts, threatens, or tries to control you? No 01/27/2024 Are you denied basic needs s uch as food, clothing, or medical care? No 01/27/2024 In the past 12 months have y ou been in a relationship with a person who hurts, threatens, or tries to control you? 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 Wish to be (Past 1 Month) No 024 5:10 PM EDT Maggy Lopez RN 2. Non-Specific Active Suici mariely Thoughts (Past 1 Month) No 01/27/2024 5:10 PM EDT Mraiangel Lopez RN 6. Suicidal Behavior (Lifetime) No 4 5:10 PM WANGT Maggy Lopez RN documented as of this encounter Plan of Treatment Not on file documented as of this encounter Visit Diagnoses Not on filedocumented in this encounter Care Teams Duct Layer Helper Relationship Specialty Start Date End Date Kellen Perez MD [address] [place] [phone] PCP - General 05/02/17 documented as of this encounter Additional Source Comments The information contained in this document represents components of the legal health record. It is not the complete legal health record.[facility]
--- OUTSIDE RECORDS SUMMARY | 2025-03-09 11:32 | XMS_ITS | Clinical Summary ---
Author Organization [facility] Address [address] [place] [address] Phone Care Team Providers Care Nuclear Operations Specialist Name Role Phone Kellen Perez MD Primary Care Provider [phone] Allergies Active Allergy Reactions Criticality Noted Date Comments Adhesive Rash Low 10/26/2020 Citalopram 01/11/2016 Other reaction(s): shortness of breath Medications glucosamine HCl 750 mg Tab Take 750 mg by mouth daily. Active lisinopril (PRINIVIL,ZESTR IL) 40 MG tablet Take 40 mg by mouth daily. Active montelukast (SINGULAIR) 10 mg tablet Take 10 mg by mouth daily. 2 Active cetirizine (ZYRTEC) 10 mg capsule Active ALPRAZolam (XANAX) 0.25 MG tablet Take 0.25 mg by mouth as needed. 1 8 Active metoprolol succinate (TOPROL-XL) 25 MG 24 hr tablet Take 25 mg by mouth daily. 1 Active tamsulosin (FLOMAX) 0.4 mg Cap 1 Active VIIBRYD 40 mg Tab 1 Active amLODIPine (NORVASC) 10 MG tablet Take 10 mg by mouth daily. 1 Active atorvastatin (LIPITOR) 10 MG tablet Take 10 mg by mouth daily. 1 Active omeprazole (PRILOSEC) 20 MG capsule 1 Active aspirin 81 MG EC tablet Take 81 mg by mouth daily. Active MAGNESIUM ORAL Take 400 mg by mouth every morning. Active calcium carbonate (OS-MANUEL) 1,250 mg (500 mg elemental) tablet Take 1 tablet by mouth daily. Active dutasteride (AVODART) 0.5 mg capsule Take 0.5 mg by mouth daily. 1 Active ipratropium-alb uteroL (DUONEB) 0.5-3 mg (2.5 mg base)/3 mL nebulizer solution Take 3 mL by nebulization every 6 (six) hours. 120 vial 1 Active traZODone (DESYREL) 50 MG tablet 1 Active fluticasone furoate (ARNUITY ELLIPTA) 100 mcg/actuation DsDv Inhale 1 puff into the lungs daily. 90 each 3 1 Active buPROPion (WELLBUTRIN XL) 150 MG ER 24 hr tablet TAKE 1 TABLET BY MOUTH EVERY MORNING ALONG WITH 300MG 4 Active buPROPion (WELLBUTRIN XL) 300 MG ER 24 hr tablet Take 300 mg by mouth every morning. 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 This is most likely related to his asthma. No further work-up is necessary. Patient does of course qualify for the Biologics for his asthma but this is now under good control with inhaled steroids so we will defer for now. If he were to have another major exacerbation soon may be a good reason to start something like that. Assessment & Plan (12/22/2020 2:49 PM EDT): We will repeat CBC with differential in 3 months. If it remains quite elevated could consider stool O&P. More likely that this is related to his untreated asthma and will improved with his inhaled corticosteroids. Depression 11/19/2020 Hiatal hernia 11/19/2020 History of arthroscopic surgery of shoulder 10/28 Labral tear of long head of right biceps tendon 11/19/2020 Pes planus 05/14/2017 Nontraumatic tear of left tibialis posterior ten don 05/14/2017 Closed fracture of radius 05/14/2017 Allergies 05/14/2017 Overview (09/25/2017): Irritation Assessment & Plan (09/18/2021 9:30 AM EDT): Continue with Zyrtec. Recommended when he has increased mucus production like that to start on the Mucinex 1200 mg twice daily immediately. Right ankle pain 05/09/2017 Hypertension Assessment & Plan (10/25/2020 11:35 AM EDT): Blood pressure relatively low 116/70 and well controlled at the time of admission, despite missing his morning medications. I have continued his home regimen with lisinopril 40 mg daily and amlodipine 10 mg daily, with hold parameters for systolic blood pressure less than 120. Timed for the morning of 10/26. Hyperlipemia Assessment & Plan (10/25/2020 11:34 AM EDT): Continued on home dose of atorvastatin 10 mg nightly. GERD (gastroesophageal reflux disease) Assessment & Plan (10/25/2020 11:34 AM EDT): Continued on pantoprazole daily. Omeprazole not on the hospital formulary. BPH (benign prostatic hyperplasia) Assessment & Plan (10/25/2020 11:33 AM EDT): Continued on home dose of tamsulosin with obstructive urinary symptoms. No dysuria or change in his urinary pattern. No concern for active infection. Asthma Assessment & Plan (09/18/2021 9:29 AM EDT): Stable on the Arnuity. Has not had an exacerbation in several years. Will refer him back to your primary care. Please let me know if you have any issues or concerns. Assessment & Plan (03/20/2021 9:50 AM EST): Continues to feel well. Will de-escalate Symbicort to Arnuity. I have sent a prescription to his local pharmacy as well as [facility]. If he has any worsening of symptoms we can go back to the Symbicort. Assessment & Plan (12/22/2020 2:48 PM EDT): Discussed importance of inhaled corticosteroids in the treatment of asthma. He is willing to continue with the Symbicort for now. We will check some IgE and other labs in 3 months when he is well out of his exacerbation. Arthritis Assessment & Plan (10/25/2020 11:33 AM EDT): Tylenol available for mild pain as needed. Resolved Problems Problem Noted Date Diagnosed Date Resolved Date Acute asthma exacerbation 10/25/2020 Assessment & Plan (10/25/2020 11:39 AM EDT): Patient has had asthma in the past with prior inhaler use, but essentially asymptomatic over 10 years with only daily Zyrtec. Recent exacerbation over the past 2 months, complicated by acute bronchitis for which he received a course of azithromycin. Failed outpatient management with 2 courses of oral steroids in addition to the antibiotic. Still with worsening shortness of breath and hypoxia. Improved with EMS and ED management with IV Solu-Medrol and nebulizers. -Continue IV steroids for additional 2 doses today, then likely to transition to oral prednisone -Combivent schedule IV times daily -Albuterol inhaler available every 4 hours as needed for shortness of breath or wheezing -Guaifenesin requested -Incentive spirometry requested -Supportive care with supplemental oxygen Asthma exacerbation 10/25/2020 03/20/20 21 Immunizations Immunization Administration Dates Next Due COVID-19 (Pre-02/18) Akin Vaccine, rS-Ad26, PF 07/07/2020 Influenza High-Dose Quadriva lent Preservative Free IM 02/05/2020 Influenza High-Dose Trivalen t Preservative Free IM 01/15/2018,12/21/2017,01/19/2017,12/20,01/06/2014 Pneumococcal conjugate PCV13 10/05/2015 Pneumococcal polysaccharide PPSV23 01/21/2020, Zoster recombinant 09/19/2018,06/07/2018 Social History Tobacco Use Types Packs/Day Years [...] Start Date Job End Date 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 Not on file N ot on file Last Filed Vital Signs Vital Sign Reading Time Taken Comments Blood Pressure 147/79 01/27/2024 6:50 PM EDT Pulse 75 01/27/2024 6:50 PM EDT Temperature 36.6 C (97.8 F) 01/27/2024 6:50 PM EDT Respiratory Rate 16 01/27/2024 6:50 PM EDT Oxygen Saturation 96% 01/27/2024 6:50 PM EDT Inhaled Oxygen Concentration 32% 10/25/2020 7 :21 PM EDT Weight 72.6 kg (160 lb) 01/27/2024 5:09 PM EDT Height 180.3 cm (5' 11 ) 01/27/2024 5:09 PM EDT Body Mass Index 22.32 01/27/2024 5:09 PM EDT Plan of Treatment Health Maintenance Due Date Last Done Comments Adult Td,Tdap Booster 1948 LIPID PANEL 1948 DEPRESSION SCREENING 1960 SMOKING Hx and SMOKELESS TOBACCO SCREENING 1961 HEPATITIS C SCREENING 1966 CREATININE LEVEL 12/04/2021 12/04/2020, , 10/25/2020 POTASSIUM LEVEL 12/04/2021 12/04/2020, 09/29, 10/25/2020 RSV VACCINE (1 - 1-dose 75+ series) 2023 BLOOD PRESSURE 07/26/2024 01/27/2024 INFLUENZA VACCINE (#1) 2024 , 02/05/2020, 01/15/2018, Additional history exists COVID-19 VACCINE ( season) 2024 08/03/2021, 02/22/2021, 07/07/2020 ZOSTER VACCINES Completed 09/19/2018, 06/07/2018 PNEUMOCOCCAL VACCINES (50+ years) Completed 01/21/2020, 06/06/2017, 10/05/2015 HEPATITIS A VACCINES Aged Out No long er eligible based on patient's age to complete this topic HIB VACCINES Aged Out No longer eligi ble based on patient's age to complete this topic IPV VACCINES Aged Out No longer eligi ble based on patient's age to complete this topic MENINGOCOCCAL VACCINES (ACWY) Aged Out No longer eligible based on patient's age to complete this topic MENINGOCOCCAL VACCINES (B) Aged Out N o longer eligible based on patient's age to complete this topic Medical Devices Not on file Procedures Procedure Name Priority Date/Time Associated Diagnosis Comments BASIC METABOLIC PANEL (BMP) STAT 12/04/2020 12:33 PM EDT from Last 3 Months or Most Recently Relevant to Health Maintenance Results * Basic metabolic panel (12/04/2020 12:33 PM EDT) SODIUM 140 133 - 146 mmol/L [facility] CHLORIDE 104 96 - 108 mmol/L [facility] POTASSIUM 4.0 3.3 - 5.1 mmol/L [facility] CO2 25 21 - 35 mmol/L [facility] BUN 14 6 - 19 mg/dL [facility] CREATININE 1.00 0.5 - 1.5 mg/dL [facility] GLUCOSE 92 70 - 99 mg/dL [facility] CALCIUM 9.2 8.4 - 10.3 mg/dL [facility] EGFR 75 >59 mL/min/1.7 3m2 [facility] Comment:Estimated glomerular filtration rate calculated using the CKD-EPI equation. ANION GAP 15 10 - 20 mmol/L [facility] Blood 12/04/2020 12:3 3 PM EDT 12/04/2020 12:38 PM EDT us Jung Simms MD LAB BLOOD BKR ORDERABLES F inal Result [facility] [address] [place], [place] [phone] from Last 3 Months or Most Recently Relevant to Health Maintenance Insurance MEDICARE PART A & B [facility] MEDICARE PART A & B [facility] MEDICARE PART A & B Member Subscriber Plan / Payer (Ef fective 2013-Present) Name:Roman Chandler Member ID:[id number] Relation to Subscriber:Self Name:Roman Chandler Subscriber ID:[id number] Payer ID:[id number] Group ID:Not on file Type:Medicare Address: [facility] [employer] [facility] [address] [place] [address] [facility] MEDICARE PART A & B [employer] [facility] MEDICARE PART A & B [employer] [facility] Member Subscriber Plan / Payer (Ef fective 2009-Present) Name:Roman Chandler Relation to Subscriber:Self Name:Roman Chandler Payer ID:[id number] (NAIC) Group ID:[id number] Type:PPO Address: [address] MEDICARE PART A & B [facility] [place] [address] [place] [address] MEDICARE PART A & B [facility] MEDICARE PART A & B [employer] [facility] MEDICARE PART A & B [facility] Advance Directives For more information, please contact: [phone] (9AM - 5PM [facility], Saturday-Saturday) Documents on File Type Date Recorded Patient Sidehand Expl anation Healthcare Proxy 10/27/2020 2:39 PM * Full Code (Latest Code Status on File) Date Activated Date Inactivated Comments 10/25/2020 11:33 AM Question Answer Comments Code Status Confirmed With: PatientFamily Care Teams Nuclear Operations Specialist Relationship Specialty Start Date End Date Kellen Perez MD [address] [place] [phone] PCP - General 05/02/17 Additional Source Comments The information contained in this document represents components of the legal health record. It is not the complete legal health record.[facility]
--- OUTSIDE RECORDS SUMMARY | 2025-03-09 11:33 | XMS_ITS | Encounter Summary ---
Author Organization [facility] Address [address] [place] [address] Phone Care Team Providers Care Sign Maker Name Role Phone Kellen Perez MD Primary Care Provider [phone] Reason for Referral * Consultation (Elective) - Closed Specialty Diagnoses / Procedures Referred By Contac t Referred To Contact Pulmonary Disease Kellen Perez MD Phone: tel: fax: [facility] [address] [place] [address] Phone: tel: Referral ID Status Reason Start Date Expiration Date Visits Re quested Visits Authorized [id number] Closed 10/21/2020 10/21/2021 1 1 Encounter Details Date Type Department Care Team (Late st Contact Info) Description 10/21/2020 Transcribe Orders [facility] Pulmonary, Allergy and Critical Care Medicine [address] [facility] [place] [address] [place] [address] Kellen Perez MD [address] [place] [address] [address] [place] [phone] Social History Tobacco Use Types Packs/Day Years Used Date Smoking Tobacco: Never Smokeless Tobacco: Never Sex and Gender Information Value Date Recorded Sex Assigned at Male 04/15/2020 1:54 PM EST Legal Sex Male 10:05 PM EDT Gender Identity Male 04/15/2020 1:54 PM EST Sexual Orientation Not on file documented as of this encounter Plan of Treatment Scheduled Referrals Name Type Priority Associated Diagnoses Order Schedule Ambulatory referral to [facility] Pulmonology Outpatient Referral Routine Ordered: 10/21/2020 documented as of this encounter Visit Diagnoses Not on filedocumented in this encounter Additional Health Concerns Infection Onset Date Last Indicated Resolved Time CoV-Risk 12/04/2020 12/04/2020 12/14/2020 1:32 AM EDT documented as of this encounter Care Teams Sign Maker Relationship Specialty Start Date End Date Kellen Perez MD [address] [place] [address] PCP - General 05/02/17 documented as of this encounter Additional Source Comments The information contained in this document represents components of the legal health record. It is not the complete legal health record.[facility]
--- OUTSIDE RECORDS SUMMARY | 2025-03-09 11:33 | XMS_ITS | Encounter Summary ---
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 Wish to be (Past 1 Month) No 024 5:10 PM EDT Maggy Lopez RN 2. Non-Specific Active Suici mariely Thoughts (Past 1 Month) No 01/27/2024 5:10 PM EDT Mariangel Lopez RN 6. Suicidal Behavior (Lifetime) No 4 5:10 PM WANGT Maggy Lopez RN documented as of this encounter Plan of Treatment Not on file documented as of this encounter Visit Diagnoses Not on filedocumented in this encounter Care Teams Storage Battery Inspector Relationship Specialty Start Date End Date Kellen Perez MD [address] [place] [phone] PCP - General 05/02/17 documented as of this encounter Additional Source Comments The information contained in this document represents components of the legal health record. It is not the complete legal health record.[facility]
--- OUTSIDE RECORDS SUMMARY | 2025-03-09 11:33 | XMS_ITS | Encounter Summary ---
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 Not on file N ot on file documented as of this encounter Functional Status * Calculated C-SSRS Risk Score (Lifetime/Recent) Answer Date of Assessment Author No Risk Indicated 01/27/2024 5:10 PM EDT Maggy Blackwood RN * [place] Suicide Severity Rating Scale (Screener/Recent Self-Report) Question [...] on filedocumented in this encounter Care Teams Corporate Financial Analyst Relationship Specialty Start Date End Date Kellen Perez MD [address] [place] [phone] PCP - General 05/02/17 documented as of this encounter Additional Source Comments The information contained in this document represents components of the legal health record. It is not the complete legal health record.[facility]
== END 2025-03-09 11:01 | disposition home or self-care (01) ==
LOC: HO.HMCH 10:04
PROVIDERS: PCP Internal Medicine; Visit Provider Internal Medicine
DX: Z00.00 Encounter for general adult medical examination without abnormal findings (principal); J45.20 Mild intermittent asthma, uncomplicated; N40.1 Benign prostatic hyperplasia with lower urinary tract symptoms; R35.0 Frequency of micturition; K21.9 Gastro-esophageal reflux disease without esophagitis; I10 Essential (primary) hypertension; E78.00 Pure hypercholesterolemia, unspecified; F41.1 Generalized anxiety disorder

== ENCOUNTER → 2025-03-09 10:03 | Outpatient (BNVA) | payer MEDICARE, BC, SELFPAY | PROVIDERS: PCP Internal Medicine; Visit Provider Internal Medicine | DX: Z13.31 Encounter for screening for depression (principal) | CPT/HCPCS: 96127 ==